=== PATIENT | male | born 1955 | race Caucasian/White ===

== ENCOUNTER → 2016-07-20 | Outpatient (CLI) | payer OTHER ==
[~2016-07-20] MED LIST: ACET-1256 PO; BSP15 PO; BUSP-8 PO; DSY50 PO; HYDR-5688 PO; LPR25 PO; METH500T37 PO; SERT100T PO; SERT50TA PO; TAMS0.4C38 PO; TRAZ1TAB52 PO; ZLF50 PO
--- NOTE | 2016-07-20 14:23 | DIAGNOSTIC IMAGING REPORT ---
CHEST 2 VIEWS ROUTINE CLINICAL HISTORY: DYSPNEA ON EXERTION COMPARISON STUDY: 11/02/2015 FINDINGS: The cardiac and mediastinal contours remain stable. There is a mild pectus deformity. There is no focal pulmonary consolidation. There is no failure. There are no pleural effusions.[ IMPRESSION: Pectus excavatum deformity. No active disease in the chest. Electronically signed by: Agustín Redd M.D. 07/20/2016 2:22 PM Dictated Date/Time: 07/20/2016 2:21 PM
== END | disposition home or self-care (01) ==
LOC: C.RADPV 14:09
PROVIDERS: ATTEND Nurse Practitioner
DX: R06.09 Other forms of dyspnea (principal)

== ENCOUNTER → 2016-07-26 | Outpatient (CLI) | payer OTHER ==
[2016-07-26 12:47] LABS: ALT/SGPT 44 U/L (12-78); AST/SGOT 14 U/L (15-37); BLOOD UREA NITROGEN 14 mg/dl (7-18); BUN/CREATININE RATIO 9.5 (10-20); CARBON DIOXIDE 28 mmol/L (21-32); CHLORIDE 107 mmol/L (98-107); GLUCOSE 91 mg/dl (70-99); SODIUM 142 mmol/L (136-145)
[2016-07-26 12:50] LABS: ALKALINE PHOSPHATASE 74 U/L (45-117); CHOLESTEROL 198 mg/dl (0-200); CHOLESTEROL/HDL RATIO 3.4; HDL CHOLESTEROL 59 mg/dl; LDL CHOLESTEROL CALCULATED 117 mg/dl; TRIGLYCERIDES 110 mg/dl (0-150); VERY LOW DENSITY LIPOPROT CALC 22 mg/dl
[2016-07-26 14:20] LABS: LYME DISEASE AB IGG NEG (NEG); LYME DISEASE AB IGM NEG (NEG)
== END | disposition home or self-care (01) ==
LOC: C.LABPVFM 08:22
PROVIDERS: ATTEND Nurse Practitioner
DX: R53.83 Other fatigue (principal); R20.9 Unspecified disturbances of skin sensation; Z13.220 Encounter for screening for lipoid disorders

== ENCOUNTER 2016-12-14 10:01 | Inpatient (IN) | payer OTHER ==
[~2016-12-14] VITALS: Ht 200.7 cm; Wt 94.7 kg
[2016-12-14 10:42] LABS: HEMATOCRIT 44.7 % (42-52); MEAN CELL VOLUME 84.8 fL (80-100); MEAN CORPUSCULAR HEMOGLOBIN 31.7 pg (25-34); MEAN CORPUSCULAR HGB CONC 37.4 g/dl (32-36); MEAN PLATELET VOLUME 9.4 fL (7.4-10.4); PLATELET COUNT 310 K/uL (130-400); RED BLOOD COUNT 5.27 M/uL (4.7-6.1); WHITE BLOOD COUNT 7.59 K/uL (4.8-10.8)
[2016-12-14] MEDS ORDERED: LORAZEPAM 2 MG/ML 1 ML VIAL IV STA (10:57)
[2016-12-14 11:00] LABS: PROTHROMBIN TIME (PATIENT) 10.8 SECONDS (9.0-12.0)
[2016-12-14 11:13] LABS: BUN/CREATININE RATIO 7.2 (10-20); CALCIUM 9.6 mg/dl (8.5-10.1); CREATININE 1.6 mg/dl (0.60-1.40); POTASSIUM 3.6 mmol/L (3.5-5.1)
[2016-12-14 11:18] LABS: ALB/GLOB RATIO 1.1 (0.9-2); CKMB/CK RATIO 0.9 (0-3.0)
[2016-12-14] MEDS ORDERED: ASPIRIN 324 MG CHEW PO STA (11:20)
[2016-12-14] MEDS ORDERED: NITROGLYCERIN OINT 2% 1GM PACKET EXT ONE (11:30)
[2016-12-14] MEDS ORDERED: OPTIRAY 320 IV PRN (11:30)
--- NOTE | 2016-12-14 11:32 | DIAGNOSTIC IMAGING REPORT ---
CHEST ONE VIEW PORTABLE CLINICAL HISTORY: Atypical chest pain, shortness of breath, arm tingling. COMPARISON STUDY: 11/09/2016 FINDINGS: The cardiac and mediastinal contours remain stable. There is no focal pulmonary consolidation. There is mild interstitial thickening, similar to the prior study given the differences in technique. There are no pleural effusions. There is no failure. There is a suspected pectus deformity.[ IMPRESSION: AP portable study. No active disease in the chest. Electronically signed by: Agustín Redd M.D. 12/14/2016 11:31 AM Dictated Date/Time: 12/14/2016 11:30 AM
[2016-12-14] MEDS ORDERED: SODIUM CHLORIDE 0.9% 1000ML 1,000 ML IV STA (12:28)
--- NOTE | 2016-12-14 12:38 | DIAGNOSTIC IMAGING REPORT ---
CT ANGIOGRAM OF THE CHEST CLINICAL HISTORY: Atypical chest pain. COMPARISON STUDY: Chest CT dated 07/03/2013. Chest x-ray dated 12/14/2016. TECHNIQUE: Following the IV administration of 93 cc of Optiray 320, CT angiogram of the chest was performed from the upper abdomen to the thoracic inlet utilizing the pulmonary embolus protocol. Images are reviewed in the axial, sagittal, and coronal planes. 3-D MIPS images are created and assessed. There is an IV malfunction on the first injection attempt. IV contrast was the administered without complication. CT DOSE: 1122.26 mGycm FINDINGS: Thyroid: Imaged portions of the thyroid gland are normal in size and attenuation. Thoracic aorta: The thoracic aorta is normal in caliber and demonstrates standard 3-vessel arch anatomy. No dissection is seen. Pulmonary vasculature: The pulmonary trunk is normal in caliber. There are no filling defects identified in main, lobar, or segmental pulmonary branches to suggest pulmonary embolus. Heart: The heart is normal in size and configuration, and without pericardial effusion. Lungs and pleural spaces: There is biapical scarring. No airspace consolidation or pleural effusion is seen. The trachea and central airways are clear. Mediastinum: There is no mediastinal lymphadenopathy. Radha: Clear. Axillae: There is no axillary lymphadenopathy. Upper abdomen: Partially visualized upper abdominal viscera is within normal limits. Skeletal structures: No lytic or blastic bony lesions are seen. A pectus deformity is noted. IMPRESSION: 1. There is no evidence of pulmonary embolus in the main, lobar, or segmental pulmonary arteries. 2. The lungs are clear. Electronically signed by: Keven Hilton M.D. 12/14/2016 12:36 PM Dictated Date/Time: 12/14/2016 12:21 PM
[2016-12-14] MEDS ORDERED: ONDANSETRON INJ 2 MG/ML 2 ML VIAL IV STA (12:54)
[2016-12-14] MEDS ORDERED: MoRPHine SULFATE 4 MG/ML 1 ML CARP\\VIAL IV STA (12:54)
[2016-12-14] MEDS ORDERED: ONDANSETRON INJ 2 MG/ML 2 ML VIAL IV PRN (13:30)
[2016-12-14] MEDS ORDERED: ACETAMINOPHEN 325 MG TAB PO PRN (13:30)
[2016-12-14] MEDS ORDERED: NURSING VERBAL MED ORDER ONE (13:30)
[2016-12-14] MEDS ORDERED: SERT50TA PO (13:30)
[2016-12-14] MEDS ORDERED: HEPARIN SOD 5000 UNIT/0.5 ML CARP IV ONE (13:30)
[2016-12-14] MEDS ORDERED: TAMS0.4C38 PO (13:30)
[2016-12-14] MEDS ORDERED: HEPARIN 25,000 UNIT/500ML D5W 500 ML IV PRN (13:30)
[2016-12-14] MEDS ORDERED: POTASSIUM CHLORIDE 10 MEQ TABCR PO STA (13:57)
[2016-12-14] MEDS ORDERED: NITROGLYCERIN 0.4 MG SL PER TAB CHARGE SL PRN (14:15)
[2016-12-14 14:42] LABS: ARTERIAL BLD GAS O2 SATURATION 94.9 % (90-95); ARTERIAL BLOOD GAS BASE EXCESS -3.4 mEq/L (-9-1.8); ARTERIAL BLOOD GAS HCO3 18 mmol/L (19-24); ARTERIAL BLOOD GAS PO2 69 mm/Hg (80-95); ARTERIAL BLOOD GAS pH 7.47 (7.35-7.45)
[2016-12-14 14:43] LABS: ALLEN TEST POS (POS); O2 ADMINISTRATION ROOM AIR
--- NOTE | 2016-12-14 15:04 | CARDIOLOGY CONSULTATION ---
DATE OF CONSULTATION: 12/14/2016 REFERRING: Dr. Euceda with the Emergency Room and Dr. Sargent. PRIMARY CARE PHYSICIAN: Through [facility]. INDICATIONS: Chest pain, dyspnea. HISTORY OF PRESENT ILLNESS: The patient is a 61-year-old male who presented to the Emergency Room with complaints of worsening dyspnea. The symptoms present now for nearly 2 years in duration by his description. Symptoms this morning were associated with chest pressure, pain as well as dyspnea and tachypnea. He has been evaluated per his own description with multiple pulmonary function tests recently as well as an echocardiogram in October 2016 for complaints without remarkable finding. His underlying medical history is notable for chronic anxiety, pectus excavatum, but no prior history of cardiac disease. Symptoms this morning caused him significant concern as he began developing a tingling sensation that began at his waist and ran to his neck and down both arms. Symptoms were then associated with acute diaphoresis and dyspnea. Episodes lasted greater than an hour in duration before ER presentation. Symptoms have eased but not completely relieved in the Emergency Room. Initial laboratory studies demonstrated an elevated troponin of 0.36. Due to symptoms of dyspnea he underwent CT scanning of the chest, which demonstrated no evidence of pulmonary emboli. Initial and repeat EKGs revealed no acute ST segment changes. He is currently intermittently dyspneic and tachypneic, but notes pressure sensation in chest is less than 1, tingling sensation has completely resolved. REVIEW OF SYSTEMS: On full review of systems he notes a history of possible heart murmur as a child. Notes no history of rheumatic fever, scarlet fever, TIA or stroke. Notes single kidney history. Notes no melena, hematochezia, dysuria or hematuria. Notes no acute weight loss or gain. Appetite has been fair. He notes marked difficulty with sleeping. He was seen in the clinic yesterday and begun on Zoloft with first dose yesterday due to current complaints. Other medications are Flomax only for urinary complaints. Notes no dysuria or hematuria. Notes no rash or arthritic complaint. ALLERGIES: AMOXICILLIN. MEDICATIONS: Sertraline 50 mg daily with first dose yesterday, tamsulosin 0.4 mg every day. PAST SURGICAL HISTORY: Notable for surgical repair of malrotation with umbilical hernia repair, past history repair, cat bite surgical debridement. FAMILY HISTORY: Not specifically notable for heart disease. SOCIAL HISTORY: The patient resides in [place]. 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 He is a prior smoker but discontinued in the remote past. Uses no current alcoholic beverage other than a rare beer. He has currently been very sedentary about home, feels dyspnea limits his activities. PHYSICAL EXAMINATION: GENERAL: The patient is an acutely anxious 61-year-old male, intermittently tachypneic on examination. VITAL SIGNS: Heart rate is 82, blood pressure is 140/90 equal in both arms. HEENT: Normocephalic, atraumatic. NECK: There are no carotid bruits. There is no jugular venous distention at 30 degrees. LUNGS: Clear to auscultation. Chest reveals marked pectus excavatum formation. CARDIOVASCULAR: Regular. There is no S3 gallop. ABDOMEN: Soft. There is a well-healed surgical incision at midline with very small umbilical hernia/ventral hernia. EXTREMITIES: Femoral and distal pulses are 2+/4. There is no palpable hepatosplenomegaly. There is no hepatojugular reflux. There are intact distal pulses. There is no brachial femoral delay. NEUROLOGIC: The patient is anxious but not answering questions appropriately. LABORATORY DATA: White blood cell count 7.5, hemoglobin 16.7. Sodium is 139, potassium is 3.6, chloride is 108, bicarbonate is 20, BUN is 12, creatinine is 1.6, glucose is 148. CK and MB fractions are normal, although initial point of care troponin was 0.36, albumin levels 3.9. EKG on initial presentation revealed sinus rhythm with borderline criteria for left atrial enlargement, repeat EKG revealed slightly moderate to marked acute T-wave peaking in the lateral leads, but performed with patient hyperventilating. Chest x-ray reveals no acute processes per description. CT scan of the chest revealed no pulmonary embolus or thrombus. IMPRESSION: A 61-year-old male with approximately 2-year history of dyspnea of ill-defined etiology with past normal pulmonary function testing per report. Echocardiogram demonstrating preserved LV function in October, presented to the Emergency Room with symptoms of tingling from abdomen to chest, chest pressure and dyspnea. Initial troponins elevated at 0.36, though EKGs revealed no acute changes. He has been initiated on IV heparin and aspirin in the Emergency Room as well as topical nitrates. RECOMMENDATIONS: We will continue current therapies as already ordered. We will repeat echocardiogram recently performed to assess for wall motion abnormalities. Suspect at least a component of his complaints are anxiety and tachypnea-induced though underlying ischemic heart disease not completely excluded. Will add in low-dose beta-fernando. Would recommend discontinuing the Zoloft begun day prior. Will follow patient in the hospital.
[2016-12-14 15:10] VITALS: BP 152/92; PULSE 66; TEMP 36.4; O2SAT 99; Ht 200.7 cm; Wt 94.7 kg
[2016-12-14 16:00] VITALS: O2SAT 99
[2016-12-14] MEDS ORDERED: METOPROLOL TARTRATE 25 MG TAB PO ONE (16:00)
[2016-12-14 16:22] VITALS: BP 146/83
[2016-12-14] MEDS: ATORVASTATIN 40 MG TAB PO SCH (16:48)
--- NOTE | 2016-12-14 17:10 | History and Physical ---
History & Physical Date of Service Dec 14, 2016. History & Physical This is a 61 year old male with a PMH of HLD, depression/anxiety, hx of tobacco use, quit 10 years prior - presents with chronic dyspnea which occurs intermittently and with no precipitating factors. He presented to the ER due to getting dyspneic, tachypneic and developed a non-radiating chest pain. He states he had a stress test in 2011, which was negative, and he has had multiple PFTs which were also negative. Recently started on Zoloft (first dose was on 12/13; one day prior to arrival). He received nitro and he feels better. VITALS: Last Vital Signs Documentation Date Time Temp Pulse Resp B/P (MAP) Pulse Ox O2 Delivery O2 Flow Rate FiO2 12/14/16 16:22 146/83 (104) 12/14/16 15:10 36.4 66 20 99 Room Air GEN: no acute distress CVS: +S1, S2, RRR LUNGS: CTA b/l, no wheezing, +pectus excavatum ABD: distended, soft, NT EXT: no edema Chest Pain this is not likely ACS related IV heparin initially started due to elevated POC trop; now down to 0.016 spoke with cardiology, will d/c IV heparin continue statin b-fernando added as per cardiology possibly related to underlying lung disease vs. anxiety CT chest = PE ruled out; lungs are clear trend enzymes echo pending Dyspnea/Tachypnea this is more likely related to anxiety patient does have a history of tobacco use - smoked 1-1.5PPD for 20 years prior to quitting about 10 years ago (2006) has had PFTs, which as per patient have been negative stopped Zoloft in case there was a side effect to the medication may need a different SSRI vs. buspar or even benzodiazepine for anxiety HLD continue statin DVT ppx initially IV heparin, now subq heparin FULL CODE
--- NOTE | 2016-12-14 17:27 | EMERGENCY ROOM VISIT NOTE ---
History Report prepared by Luis: Paulie Rosenthal Under the Supervision of: Dr. Liam Euceda M.D. First contact with patient: 10:48 Chief Complaint: CHEST PAIN Stated Complaint: CHEST PAIN,TINGLE IN ARM,SOB Nursing Triage Summary: pt reports tingling sensation from top of chest down to left side at armpits pt is obviously hyperventilating, per himself and , he has been having multiple tests to figure out why, today however it is worse pt recently started zoloft History of Present Illness The patient is a 61 year old male who presents to the Emergency Room with complaints of intermittent, pressure-like chest pain that began 2 and a half hours ago. He rates his pain a 6/10 in severity. At this time, the patient was sitting down watching television when the pain began suddenly. He notes that he felt a tingling sensation go from his sternum to his groin. This has been happening intermittently since then. He feels that his chest is tight and is making it hard for him to breath. He is also experiencing diaphoresis and heat flashes. His pain worsens with exertion. He denies any leg swelling or pain. He has a past medical history of respiratory problems for the past 2 years, but cannot find a source. He also has a history of hypertension, but is not currently treating it. He is a former smoker, having quit 9 years ago. Heart disease does not run in his family. He also began Zoloft yesterday. Source of History: patient Onset: 2 and a half hours ago Position: chest Symptom Intensity: 6/10 Quality: pressure, tingling Timing: intermittent Modifying Factors (Worsening): exertion Associated Symptoms: + diaphoresis, + SOB Note: He denies any leg swelling or pain. Review of Systems See HPI for pertinent positives & negatives. A total of 10 systems reviewed and were otherwise negative. Past Medical & Surgical Medical Problems: (1) Anxiety (2) BPH (benign prostatic hyperplasia) (3) Intestinal malrotation (4) Solitary kidney Surgical Problems: (1) H/O sinus surgery (2) History of carpal tunnel surgery (3) History of intestinal surgery Family History FHx: lung disease Social History Smoking Status: Former Smoker Marital Status: Housing Status: lives with family Occupation Status: employed Current/Historical Medications Scheduled Sertraline (Zoloft), 50 MG PO DAILY Tamsulosin Hcl (Flomax), 0.4 MG PO DAILY Allergies Coded Allergies: Amoxicillin (Verified Allergy, Mild, RASH, 12/14/16) Physical Exam Vital Signs Date Time Temp Pulse Resp B/P (MAP) Pulse Ox O2 Delivery O2 Flow Rate FiO2 12/14/16 13:17 73 12/14/16 11:42 68 19 149/84 97 Room Air 12/14/16 10:39 75 22 143/81 98 Room Air 12/14/16 10:20 69 12/14/16 10:20 71 40 156/85 99 Room Air 12/14/16 10:16 99 Room Air 12/14/16 10:09 36.4 75 40 150/82 97 Room Air Physical Exam Constitutional: Vital signs reviewed. Eyes: Pupils are equal round reactive to light. Conjunctiva are noninjected. ENT: Pharynx is clear without erythema or exudate. Mucous membranes are moist. Neck supple without meningeal signs. Respiratory: Hyperventilating. Clear to auscultation bilaterally. Breath sounds are equal bilaterally. Cardiovascular: Regular rate and rhythm. No rubs or gallops. GI: Soft, nondistended and nontender. Bowel sounds are present. Musculoskeletal: No peripheral edema. No lower extremity tenderness. Integumentary: No cyanosis. Neurological: The patient is awake and alert. No focal deficits. Psychiatric: Anxious. Medical Decision & Procedures ER Provider Diagnostic Interpretation: Radiology results as stated below per my review and the radiologist's interpretation: CHEST ONE VIEW PORTABLE CLINICAL HISTORY: Atypical chest pain, shortness of breath, arm tingling. COMPARISON STUDY: 11/09/2016 FINDINGS: The cardiac and mediastinal contours remain stable. There is no focal pulmonary consolidation. There is mild interstitial thickening, similar to the prior study given the differences in technique. There are no pleural effusions. There is no failure. There is a suspected pectus deformity.[ IMPRESSION: AP portable study. No active disease in the chest. Electronically signed by: Agustín Redd M.D. 12/14/2016 11:31 AM Dictated Date/Time: 12/14/2016 11:[address] ANGIOGRAM OF THE CHEST CLINICAL HISTORY: Atypical chest pain. COMPARISON STUDY: Chest CT dated 07/03/2013. Chest x-ray dated 12/14/2016. TECHNIQUE: Following the IV administration of 93 cc of Optiray 320, CT angiogram of the chest was performed from the upper abdomen to the thoracic inlet utilizing the pulmonary embolus protocol. Images are reviewed in the axial, sagittal, and coronal planes. 3-D MIPS images are created and assessed. There is an IV malfunction on the first injection attempt. IV contrast was the administered without complication. CT DOSE: 1122.26 mGycm FINDINGS: Thyroid: Imaged portions of the thyroid gland are normal in size and attenuation. Thoracic aorta: The thoracic aorta is normal in caliber and demonstrates standard 3-vessel arch anatomy. No dissection is seen. Pulmonary vasculature: The pulmonary trunk is normal in caliber. There are no filling defects identified in main, lobar, or segmental pulmonary branches to suggest pulmonary embolus. Heart: The heart is normal in size and configuration, and without pericardial effusion. Lungs and pleural spaces: There is biapical scarring. No airspace consolidation or pleural effusion is seen. The trachea and central airways are clear. Mediastinum: There is no mediastinal lymphadenopathy. Radha: Clear. Axillae: There is no axillary lymphadenopathy. Upper abdomen: Partially visualized upper abdominal viscera is within normal limits. Skeletal structures: No lytic or blastic bony lesions are seen. A pectus deformity is noted. IMPRESSION: 1. There is no evidence of pulmonary embolus in the main, lobar, or segmental pulmonary arteries. 2. The lungs are clear. Electronically signed by: Keven Hilton M.D. 12/14/2016 12:36 PM Dictated Date/Time: 12/14/2016 12:21 PM Laboratory Results 12/14/16 10:30 12/14/16 10:30 Test 12/14/16 10:30 12/14/16 10:44 Red Blood Count 5.27 M/uL (4.7-6.1) Mean Corpuscular Volume 84.8 fL (80-100) Mean Corpuscular Hemoglobin 31.7 pg (25-34) Mean Corpuscular Hemoglobin Concent 37.4 g/dl (32-36) RDW Standard Deviation 41.2 fL (36.4-46.3) RDW Coefficient of Variation 13.3 % (11.5-14.5) Mean Platelet Volume 9.4 fL (7.4-10.4) Prothrombin Time 10.8 SECONDS (9.0-12.0) Prothromb Time International Ratio 1.0 (0.9-1.1) Activated Partial Thromboplast Time 27.1 SECONDS (21.0-31.0) Partial Thromboplastin Ratio 1.0 D-Dimer 370 ug/L FEU (0-500) Anion Gap 11.0 mmol/L (3-11) Est Creatinine Clear Calc Drug Dose 64.3 ml/min Estimated GFR () 53.1 Estimated GFR (Non- 45.8 BUN/Creatinine Ratio 7.2 (10-20) Calcium Level 9.6 mg/dl (8.5-10.1) Total Bilirubin 0.7 mg/dl (0.2-1) Aspartate Amino Transf (AST/SGOT) 24 U/L (15-37) Alanine Aminotransferase (ALT/SGPT) 38 U/L (12-78) Alkaline Phosphatase 77 U/L (45-117) Total Creatine Kinase 278 U/L (39-308) Total Protein 7.6 gm/dl (6.4-8.2) Albumin 3.9 gm/dl (3.4-5.0) Globulin 3.7 gm/dl (2.5-4.0) Albumin/Globulin Ratio 1.1 (0.9-2) Bedside Troponin I 0.360 ng/ml (0-0.045) Laboratory results as reviewed by me. Medications Administered Medications (Trade) Dose Ordered Sig/Gadiel Route Start Time Stop Time Status Last Admin Dose Admin Lorazepam (Ativan Inj) 0.5 mg NOW STAT IV 12/14/16 10:57 12/14/16 10:58 DC 12/14/16 11:11 0.5 MG Nitroglycerin (Nitroglycerin 2% Oint) 0.5 inch NOW ONCE EXT 12/14/16 11:30 12/14/16 11:31 DC 12/14/16 11:36 0.5 INCH Aspirin (Aspirin Chew) 324 mg NOW STAT PO 12/14/16 11:20 12/14/16 11:22 DC 12/14/16 11:36 324 MG Sodium Chloride 1,000 ml @ 125 mls/hr Q8H STAT IV 12/14/16 12:28 12/14/16 15:36 DC 12/14/16 12:46 125 MLS/HR Heparin Sodium/ Dextrose 500 ml @ 24 mls/hr [id number] PRN IV 12/14/16 13:30 12/14/16 16:59 DC 12/14/16 14:05 24 MLS/HR Heparin Sodium (Porcine) (Heparin Sq 5000 Unit/0.5ml) 5,000 unit NOW ONCE IV 12/14/16 13:30 12/14/16 13:31 DC 12/14/16 14:03 5,000 UNIT ECG Indication: chest pain Rate (beats per minute): 75 Rhythm: normal sinus Findings: nonspecific-ST abn (V3-V6), no ectopy Comparison ECG Date: 20 Jun 2008 Change: no significant change Change: Repeat ECG today showed: Sinus bradycardia with a rate of 58. No ST elevations. No ectopy. The T-waves are more prominent in this ECG compared to previous. ED Course 1048: The patient was evaluated in room C6. A complete history and physical exam was performed. 1057: Ordered Ativan Inj 0.5 mg IV 1120: The patient is feeling better at this time. He is still dyspneic. We discussed his results and his need for a CT scan. Ordered Aspirin 324 mg PO. 1130: Ordered Nitroglycerin 0.5 inch EXT 1228: Ordered Sodium Chloride 1000 ml @ 125 mls/hr IV 1253: The patient informed me that his chest pain is at a 3/10. 1254: I spoke with Rossi Brown. She will be evaluating the patient for further management and care. Ordered Zofran Inj 4 mg IV, Morphine Sulfate 4 mg IV. 1306: The patient informed me that his chest pain is now a 1/10. We discussed the risks and benefits of Heparin. Rossi Caruso is currently in the room. 1307: I spoke with Dr. Bhatia - Madelaine, at this time. We discussed the patient's case. He recommends starting the Heparin. He will be coming to evaluate the patient. 1413: The patient's chest pain is gone. The Heparin is infusing. Medical Decision This is a 61-year-old male who presents with chest pain. Differential diagnosis includes unstable angina, HI, pleurisy, pulmonary embolism, anxiety, panic attack. I did perform a limited focused review of portions of the patient 's old chart on the electronic medical record. The patient had an echocardiogram on November 09, 2016. It showed grade 1 diastolic dysfunction. Blood Pressure Screening: Patient was found to have an elevated blood pressure and was referred to their primary doctor for recheck and further treatment. Medication Reconciliation: I attest that I have personally reviewed the patient' s current medication list. I did evaluate the patient as noted above. IV access was established. The patient was placed on a continuous diagnostic cardiac sonographer. The patient is hyperventilating. He does present with chest pain which came on at rest and was associated with shortness of breath and diaphoresis. He is also very anxious. I did treat him with Ativan IV. I did order and personally review the patient's 12-lead EKG and chest x-ray as described above. His 12-lead EKG does not demonstrate any acute ischemia. I did order and review the patient's blood work as noted in the electronic medical record. His troponin is elevated. I did reevaluate the patient. He is stating that his chest pain has come back. He was given nitro paste and aspirin. He is still hyperventilating. I did recommend evaluation for PE. I did order a CT of the chest. I did review the images myself as well as the radiology report as described above. He was hydrated with normal saline IV after his CT scan. There was no pulmonary embolism. I did repeat his 12-lead EKG which showed hyperacute T waves in the precordial leads. He rated his pain a 3 out of 10 in severity. I did order IV morphine and Zofran but he stated that the chest pain improved even before he was given the morphine down to a 1. I did talk to cardiology. I did start patient on IV heparin and a heparin drip. On reassessment his chest pain is completely resolved. He was admitted to the hospital. Consults Time Called: 1250 Consulting Physician: Rossi Mcnulty Returned Call: [phone] She will be evaluating the patient for further management and care. Additional Consults: Time Called: 1305 Consulted Physician: Dr. Bhatia - Cardiology Returned Call: [phone] Additional Comments: We discussed the patient's case. They recommend to start the Heparin. They will be coming to evaluate the patient as well. Impression Primary Impression: NSTEMI (non-ST elevated myocardial infarction) Critical Care I have personally spent 35 minutes of critical care time in the direct management of this patient. This includes bedside care, interpretation of diagnostic studies, and testing, discussion with consultants, patient, and family members, and other required patient management activities. This 35 minutes is in excess of all separately billable procedures. Scribe Attestation The scribe's documentation has been prepared under my direct and personally reviewed by me in its entirety. I confirm that the note above accurately reflects all work, treatment, procedures, and medical decision making performed by me. Departure Information Dispostion Being Evaluated By Hospitalist Referrals No Doctor, Assigned (PCP) Patient Instructions My [facility]
--- NOTE | 2016-12-14 17:39 | History and Physical ---
History & Physical Date & Time of Service: Dec 14, 2016 ~ 13:00 Chief Complaint: Chest Pain Primary Care Physician: Abdirahman,Norberto [facility] History of Present Illness 61 year old male who presents to the ER with chest pain. Patient reports a long standing history of shortness of breath for the past two years. 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 Patient reports that he develops shortness of breath with minimal exertion and also sometimes at rest. Today while sitting on the couch watching TV the front of his body from his head to his waist started to tingled. He then felt very hot and broke out in severe diaphoresis. He also reports associated chest pain that was located midsternal. He describes the pain as a stabbing and rates it #9/10 at its worst. He then presented to the ER. He was topical nitro and had almost complete resolution of the pain. Patient denies associated nausea, lightheadedness, or dizziness. No recent illnesses, fever, or chills. He denies abdominal pain, vomiting, or diarrhea. No urinary symptoms. In the ER, EKG does not show any acute ST changes but troponin is mildly elevated at 0.360. CTA chest is negative for PE. He was given full dose ASA, topical nitro, Ativan, and IVF. Past Medical/Surgical History Medical Problems: (1) Anxiety Status: Chronic (2) BPH (benign prostatic hyperplasia) Status: Chronic (3) Intestinal malrotation Status: Chronic (4) Solitary kidney Status: Chronic Surgical Problems: (1) H/O sinus surgery Status: Chronic (2) History of carpal tunnel surgery Status: Chronic (3) History of intestinal surgery Status: Chronic Family History negative for premature CAD, DM, or CVA Social History Smoking Status: Former Smoker Alcohol Use: occasionally Multi-Drug Resistant Organisms History of MDRO: No Allergies Coded Allergies: Amoxicillin (Verified Allergy, Mild, RASH, 12/14/16) Home Medications Scheduled Sertraline (Zoloft), 50 MG PO DAILY Tamsulosin Hcl (Flomax), 0.4 MG PO DAILY Review of Systems ROS per HPI, all other systems reviewed and negative Physical Exam Vital Signs Date Time Temp Pulse Resp B/P (MAP) Pulse Ox O2 Delivery O2 Flow Rate FiO2 12/14/16 16:22 146/83 (104) 12/14/16 15:10 36.4 66 20 152/92 99 Room Air 12/14/16 15:00 65 20 139/87 98 12/14/16 14:45 65 15 139/87 98 Room Air 12/14/16 13:42 65 20 154/91 98 Room Air 12/14/16 13:17 73 12/14/16 11:42 68 19 149/84 97 Room Air 12/14/16 10:39 75 22 143/81 98 Room Air 12/14/16 10:20 69 12/14/16 10:20 71 40 156/85 99 Room Air 12/14/16 10:16 99 Room Air 12/14/16 10:09 36.4 75 40 150/82 97 Room Air General Appearance: + mild distress (tachypnea) Head: normocephalic Eyes: normal inspection ENT: hearing grossly normal Neck: supple, no JVD Respiratory/Chest: lungs clear, normal breath sounds, + respiratory distress ( mild tachypnea - patient reports chronic ), + pertinent finding (pectus excavatum noted ) Cardiovascular: regular rate, rhythm, no edema, normal peripheral pulses Abdomen/GI: normal bowel sounds, non tender, soft Extremities/Musculoskelatal: normal inspection, no calf tenderness Neurologic/Psych: no motor/sensory deficits, alert, normal mood/affect, oriented x 3 Skin: normal color, warm/dry Diagnostics Laboratory Results Results Past 24 Hours Test 12/14/16 10:30 12/14/16 10:44 12/14/16 14:30 12/14/16 16:00 Range/Units White Blood Count 7.59 4.8-10.8 K/uL Red Blood Count 5.27 4.7-6.1 M/uL Hemoglobin 16.7 14.0-18.0 g/dL Hematocrit 44.7 42-52 % Mean Corpuscular Volume 84.8 80-100 fL Mean Corpuscular Hemoglobin 31.7 25-34 pg Mean Corpuscular Hemoglobin Concent 37.4 32-36 g/dl RDW Standard Deviation 41.2 36.4-46.3 fL RDW Coefficient of Variation 13.3 11.5-14.5 % Platelet Count 310 130-400 K/uL Mean Platelet Volume 9.4 7.4-10.4 fL Prothrombin Time 10.8 9.0-12.0 SECONDS Prothromb Time International Ratio 1.0 0.9-1.1 Activated Partial Thromboplast Time 27.1 21.0-31.0 SECONDS Partial Thromboplastin Ratio 1.0 D-Dimer 370 0-500 ug/L FEU Sodium Level 139 136-145 mmol/L Potassium Level 3.6 3.5-5.1 mmol/L Chloride Level 108 98-107 mmol/L Carbon Dioxide Level 20 21-32 mmol/L Anion Gap 11.0 3-11 mmol/L Blood Urea Nitrogen 12 7-18 mg/dl Creatinine 1.60 0.60-1.40 mg/dl Est Creatinine Clear Calc Drug Dose 64.3 ml/min Estimated GFR () 53.1 Estimated GFR (Non- 45.8 BUN/Creatinine Ratio 7.2 10-20 Random Glucose 148 70-99 mg/dl Calcium Level 9.6 8.5-10.1 mg/dl Total Bilirubin 0.7 0.2-1 mg/dl Aspartate Amino Transf (AST/SGOT) 24 15-37 U/L Alanine Aminotransferase (ALT/SGPT) 38 12-78 U/L Alkaline Phosphatase 77 45-117 U/L Total Creatine Kinase 278 39-308 U/L Creatine Kinase MB 2.5 0.5-3.6 ng/ml Creatine Kinase MB Ratio 0.9 0-3.0 Total Protein 7.6 6.4-8.2 gm/dl Albumin 3.9 3.4-5.0 gm/dl Globulin 3.7 2.5-4.0 gm/dl Albumin/Globulin Ratio 1.1 0.9-2 Bedside Troponin I 0.360 0-0.045 ng/ml Arterial Blood pH 7.47 7.35-7.45 Arterial Blood Partial Pressure CO2 26 35-46 mmHg Arterial Blood Partial Pressure O2 69 80-95 mm/Hg Arterial Blood HCO3 18 19-24 mmol/L Arterial Blood Oxygen Saturation 94.9 90-95 % Arterial Blood Base Excess -3.4 -9-1.8 mEq/L Arterial Blood Gas Delivery ROOM AIR Britton Test POS POS Test 12/14/16 16:02 Range/Units Creatine Kinase MB 1.8 0.5-3.6 ng/ml Troponin I 0.016 0-0.045 ng/ml Diagnostic Radiology CXR IMPRESSION: AP portable study. No active disease in the chest. CTA CHEST IMPRESSION: 1. There is no evidence of pulmonary embolus in the main, lobar, or segmental pulmonary arteries. 2. The lungs are clear. Impression Assessment and Plan CHEST PAIN, SHORTNESS OF BREATH - admit to tele - patient presenting with sudden onset of upper body tingling, diaphoresis, chest pain, and acute worsening of his chronic shortness of breath - in the ER, initial troponin 0.360, EKG without acute ST changes - will continue to cycle cardiac enzymes, resting echo - possible NSTEMI - case discussed with Dr. Bhatia, will start IV heparin and statin, continue topical nitrates; further cardiac meds as per cardio - no risk factors for ACS identified - also consider anxiety / reaction to recently started Zoloft; will hold Zoloft - regarding the shortness of breath, this has been a long standing problem for the patient for the past 2 years and per his reports has had an extensive work up; will consider pulmonary work up BPH - continue Flomax ANXIETY - as above, holding Zoloft, consider alternative agent DVT PROPHYLAXIS - on IV heparin DISPO - In my clinical judgment this beneficiary meets acute admission criteria, established by [facility], that includes being hospitalized through two midnights. Advanced Directives Existing Living Will: No Existing Power of Alliances Consultant: No VTE Prophylaxis VTE Risk Assessment Done? Y/N: Yes Risk Level: Moderate Given or contraindicated: Other Anticoagulation
--- NOTE | 2016-12-14 17:40 | ECHOCARDIOGRAM REPORT ---
*NOTICE TO RECEIVING [employer] This information is strictly Confidential and protected under [place] law. [place] law prohibits you from making any further disclosure of this information unless further disclosure is expressly permitted by the written consent of the person to whom it pertains or is authorized by law. A general authorization for the release of medical or other information is not sufficient for this purpose. Hospital accepts no responsibility if the information is made available to any other person, INCLUDING THE PATIENT. Interpretation Summary * Name: TIMO OLIVARES JR Study Date: 12/14/2016 03:18 PM BP: 152/92 mmHg * Patient Location: .2E\S\E208\S\1 HR: 66 * : 1955 (M/d/yyyy) Gender: Male Height: 79 in * Age: 61 yrs Ethnicity: CA Weight: 216 lb * Ordering Physician: Rossi Caruso * Referring Physician: Self, Referred * Performed By: Abbey Zapata RDCS * * Reason For Study: Chest pain * BSA: 2.4 m2 * Normal transthoracic echocardiogram. Procedure Details * A complete two-dimensional transthoracic echocardiogram was performed (2D, M-mode, Doppler and color flow Doppler). Left Ventricle * The left ventricle is normal in size. * There is normal left ventricular wall thickness. * Ejection Fraction = 60-65%. * Left ventricular systolic function is normal. * The left ventricular wall motion is normal. Right Ventricle * The right ventricle is normal in size and function. Atria * The left atrial size is normal. * Right atrial size is normal. * No ASD detected; PFO is not assessed. Mitral Valve * The mitral valve is normal. * There is no mitral valve stenosis. * There is trace mitral regurgitation. Tricuspid Valve * The tricuspid valve is normal. * There is no tricuspid stenosis. * There is trace tricuspid regurgitation. Aortic Valve * The aortic valve is trileaflet. * No hemodynamically significant valvular aortic stenosis. * No aortic regurgitation is present. Pulmonic Valve * The pulmonic valve is not well visualized. Great Vessels * The aortic root is normal size. Pericardium/Pleural * There is no pericardial effusion. Great Vessels * Normal inferior vena cava diameter and respiratory variation suggests normal central venous pressure. MMode 2D Measurements and Calculations IVSd 1.1 cm LVIDd 4.1 cm LVIDs 2.5 cm LVPWd 0.85 cm IVS/LVPW 1.3 FS 39.5 % EDV(Teich) 72.2 ml ESV(Teich) 21.2 ml EF(Teich) 70.6 % EDV(cubed) 66.5 ml ESV(cubed) 14.7 ml EF(cubed) 77.9 % LV mass(C)d 124.2 grams LV mass(C)dI 52.8 grams/m\S\2 SV(Teich) 50.9 ml SI(Teich) 21.6 ml/m\S\2 SV(cubed) 51.8 ml SI(cubed) 22.0 ml/m\S\2 Ao root diam 3.4 cm Ao root area 9.1 cm\S\2 ACS 2.0 cm LA dimension 2.8 cm asc Aorta Diam 3.0 cm LA/Ao 0.82 LVOT diam 2.0 cm LVOT area 3.0 cm\S\2 LVAd ap4 29.3 cm\S\2 LVLd ap4 7.2 cm EDV(MOD-sp4) 95.3 ml EDV(sp4-el) 101.1 ml LVAs ap4 16.0 cm\S\2 LVLs ap4 6.0 cm ESV(MOD-sp4) 34.9 ml ESV(sp4-el) 36.1 ml EF(MOD-sp4) 63.4 % EF(sp4-el) 64.3 % LVAd ap2 25.9 cm\S\2 LVLd ap2 7.8 cm EDV(MOD-sp2) 69.3 ml EDV(sp2-el) 72.5 ml LVAs ap2 13.7 cm\S\2 LVLs ap2 6.1 cm ESV(MOD-sp2) 25.9 ml ESV(sp2-el) 26.1 ml EF(MOD-sp2) 62.6 % EF(sp2-el) 64.0 % LVLd %diff 8.0 % EDV(MOD-bp) 84.9 ml LVLs %diff 0.67 % ESV(MOD-bp) 30.1 ml EF(MOD-bp) 64.6 % SV(MOD-sp4) 60.4 ml SI(MOD-sp4) 25.7 ml/m\S\2 SV(MOD-sp2) 43.4 ml SI(MOD-sp2) 18.5 ml/m\S\2 SV(MOD-bp) 54.9 ml SI(MOD-bp) 23.3 ml/m\S\2 SV(sp4-el) 65.0 ml SI(sp4-el) 27.6 ml/m\S\2 SV(sp2-el) 46.4 ml SI(sp2-el) 19.7 ml/m\S\2 Doppler Measurements and Calculations MV E max kb 52.9 cm/sec MV A max kb 82.9 cm/sec MV E/A 0.64 MV dec time 0.21 sec Ao V2 max 117.3 cm/sec Ao max PG 5.5 mmHg Ao max PG (full) 0.83 mmHg ISAC(V,A) 2.8 cm\S\2 ISAC(V,D) 2.8 cm\S\2 LV V1 max PG 4.7 mmHg LV V1 max 108.2 cm/sec PA V2 max 115.4 cm/sec PA max PG 5.3 mmHg PA acc slope 596.9 cm/sec\S\2 PA acc time 0.15 sec PI max kb 109.9 cm/sec PI max PG 4.8 mmHg PI dec slope 98.8 cm/sec\S\2 PI P1/2t 325.8 msec PA pr(Accel) 12.5 mmHg
[2016-12-14] MEDS: METOPROLOL TARTRATE 25 MG TAB PO SCH ×2 (18:00→23:20)
[2016-12-14 18:23] VITALS: BP 125/77; PULSE 61; O2SAT 97
[2016-12-14] MEDS: NITROGLYCERIN OINT 2% 1GM PACKET EXT SCH ×2 (18:25→23:20)
[2016-12-14 19:21] VITALS: BP 126/76; PULSE 55; TEMP 36.5; O2SAT 98
[2016-12-14] MEDS: BusPIRone 15 MG TAB PO SCH (21:23)
[2016-12-14] MEDS: HEPARIN SOD 5000 UNIT/0.5 ML CARP SQ SCH (21:23)
[2016-12-14 23:18] VITALS: BP 122/70; PULSE 57; TEMP 36.9; O2SAT 96
[2016-12-15 03:07] VITALS: BP 114/59; PULSE 66; TEMP 36.7; O2SAT 97
[2016-12-15] MEDS: METOPROLOL TARTRATE 25 MG TAB PO SCH (06:00)
[2016-12-15 06:03] VITALS: BP 129/68
[2016-12-15] MEDS: HEPARIN SOD 5000 UNIT/0.5 ML CARP SQ SCH ×2 (06:07→13:31)
[2016-12-15] MEDS: NITROGLYCERIN OINT 2% 1GM PACKET EXT SCH (06:07)
[2016-12-15 06:23] LABS: HEMATOCRIT 44.4 % (42-52); MEAN CELL VOLUME 85.5 fL (80-100); MEAN CORPUSCULAR HEMOGLOBIN 30.4 pg (25-34); MEAN CORPUSCULAR HGB CONC 35.6 g/dl (32-36); MEAN PLATELET VOLUME 9.4 fL (7.4-10.4); PLATELET COUNT 301 K/uL (130-400); RED BLOOD COUNT 5.19 M/uL (4.7-6.1); WHITE BLOOD COUNT 9.25 K/uL (4.8-10.8)
[2016-12-15 06:55] LABS: BUN/CREATININE RATIO 10.2 (10-20); CALCIUM 8.9 mg/dl (8.5-10.1); CREATININE 1.5 mg/dl (0.60-1.40)
[2016-12-15 07:00] LABS: CHOLESTEROL/HDL RATIO 4.5
[2016-12-15 07:45] VITALS: BP 126/65; PULSE 62; TEMP 36.6; O2SAT 96
[2016-12-15] MEDS: ATORVASTATIN 40 MG TAB PO SCH (07:45)
[2016-12-15] MEDS: BusPIRone 15 MG TAB PO SCH (07:45)
[2016-12-15] MEDS ORDERED: ASPIRIN 81 MG ECTAB PO SCH (09:00)
[2016-12-15] MEDS ORDERED: SERTRALINE HCL 50 MG TAB PO SCH ×2 (09:00→14:45)
[2016-12-15] MEDS ORDERED: TAMSULOSIN HCL 0.4 MG CAP PO SCH (09:00)
[2016-12-15] MEDS ORDERED: LORAZEPAM 0.5 MG TAB PO STA (09:27)
[2016-12-15] MEDS ORDERED: LORAZEPAM 0.5 MG TAB PO PRN (09:30)
--- NOTE | 2016-12-15 09:47 | Progress Note ---
Internal Med Progress Note Date of Service: Dec 15, 2016. Provider Documentation: SUBJECTIVE: continues to feel very anxious feels very SOB /palpitation with activity no hypoxia notes pt mentions of having panic attack /anxiety with crowed , around people -since his childhood having anxiety attack -leading him having acute episode of SOB , drenching sweats , palpitation , tingling sensations in extremities none of the symptoms has improves since admission OBJECTIVE: Vital Signs-as noted below Exam: General-anxious , Eyes-sclera non icteric Neck-no JVD noted Lungs-CTA Heart-regular s1/s2, no lower ext edema Abdomen-soft, non tender Extremities-no rash or deformity Neuro-AAO x3, no focal neurological deficit Lab data as noted below. ASSESSMENT & PLAN: ANXIETY DISORDER /PANIC ATTACK /AGAROPHOBIA : -possible causing chest pain /diaphoresis /tingling numbness of ext -cardiac work up negative for ACS -ECHO -normal finding , normal EF , no wall motion abnormality -appreciate input form Cardiology -pt continues to hyperventilate , continues to complain of SOB /chest heaviness -Spo2 99% in RA -Zoloft was discontinues as pt reports his symptom precipitates to causing him ER visit since he started on SSRI ( took for 2 days ) -ordered for Ativan PRN -pt mentions of significant agarophobia -can be outside with crowd , can not go to park -Psych consult requested for eval and medication recommendation CHEST PAIN, SHORTNESS OF BREATH -due to above cardiac work up been negative ; D/C nitro paste -CT chest negative for PE -no hypoxia noted in pulse ox 99% in RA -has been a long standing problem for the patient for the past 2 years and per his reports has had an extensive work up DEPRESSION : pt mentions of being hopeless waking up early in morning -feeling there is no reason to live any more no suicidal ideation was started on Zoloft -at [facility] for the symptom -was stopped as he mentions be cold and clammy /drenching sweats with this started on Bus[place] this admission Psych eval requested BPH - continue Flomax DVT PROPHYLAXIS sub q heparin DISPOSITION -stable to transfer to medical floor expected to be discharged home when medically stable will need out pt Psychiatry follow up for management of Anxiety Disorder follows at [facility] UPDATE AT BEDSIDE Vital Signs: Date Time Temp Pulse Resp B/P (MAP) Pulse Ox O2 Delivery O2 Flow Rate FiO2 12/15/16 07:45 36.6 62 16 126/65 (85) 96 Room Air 12/15/16 06:03 129/68 (88) 12/15/16 04:00 Room Air 12/15/16 03:07 36.7 66 16 114/59 (77) 97 Room Air 12/15/16 00:01 Room Air 12/14/16 23:18 36.9 57 16 122/70 (87) 96 Room Air 12/14/16 20:00 Room Air 12/14/16 19:21 36.5 55 18 126/76 (93) 98 Room Air 12/14/16 18:23 61 18 125/77 (93) 97 Room Air 12/14/16 16:22 146/83 (104) 12/14/16 16:00 99 Room Air 12/14/16 15:10 36.4 66 20 152/92 99 Room Air 12/14/16 15:00 65 20 139/87 98 12/14/16 14:45 65 15 139/87 98 Room Air 12/14/16 13:42 65 20 154/91 98 Room Air 12/14/16 13:17 73 12/14/16 11:42 68 19 149/84 97 Room Air 12/14/16 10:39 75 22 143/81 98 Room Air 12/14/16 10:20 69 12/14/16 10:20 71 40 156/85 99 Room Air 12/14/16 10:16 99 Room Air Lab Results: Results Past 24 Hours Test 12/14/16 10:30 12/14/16 10:44 12/14/16 14:30 12/14/16 16:00 Range/Units White Blood Count 7.59 4.8-10.8 K/uL Red Blood Count 5.27 4.7-6.1 M/uL Hemoglobin 16.7 14.0-18.0 g/dL Hematocrit 44.7 42-52 % Mean Corpuscular Volume 84.8 80-100 fL Mean Corpuscular Hemoglobin 31.7 25-34 pg Mean Corpuscular Hemoglobin Concent 37.4 32-36 g/dl RDW Standard Deviation 41.2 36.4-46.3 fL RDW Coefficient of Variation 13.3 11.5-14.5 % Platelet Count 310 130-400 K/uL Mean Platelet Volume 9.4 7.4-10.4 fL Prothrombin Time 10.8 9.0-12.0 SECONDS Prothromb Time International Ratio 1.0 0.9-1.1 Activated Partial Thromboplast Time 27.1 21.0-31.0 SECONDS Partial Thromboplastin Ratio 1.0 D-Dimer 370 0-500 ug/L FEU Sodium Level 139 136-145 mmol/L Potassium Level 3.6 3.5-5.1 mmol/L Chloride Level 108 98-107 mmol/L Carbon Dioxide Level 20 21-32 mmol/L Anion Gap 11.0 3-11 mmol/L Blood Urea Nitrogen 12 7-18 mg/dl Creatinine 1.60 0.60-1.40 mg/dl Est Creatinine Clear Calc Drug Dose 64.3 ml/min Estimated GFR () 53.1 Estimated GFR (Non- 45.8 BUN/Creatinine Ratio 7.2 10-20 Random Glucose 148 70-99 mg/dl Calcium Level 9.6 8.5-10.1 mg/dl Total Bilirubin 0.7 0.2-1 mg/dl Aspartate Amino Transf (AST/SGOT) 24 15-37 U/L Alanine Aminotransferase (ALT/SGPT) 38 12-78 U/L Alkaline Phosphatase 77 45-117 U/L Total Creatine Kinase 278 39-308 U/L Creatine Kinase MB 2.5 0.5-3.6 ng/ml Creatine Kinase MB Ratio 0.9 0-3.0 Total Protein 7.6 6.4-8.2 gm/dl Albumin 3.9 3.4-5.0 gm/dl Globulin 3.7 2.5-4.0 gm/dl Albumin/Globulin Ratio 1.1 0.9-2 Bedside Troponin I 0.360 0-0.045 ng/ml Arterial Blood pH 7.47 7.35-7.45 Arterial Blood Partial Pressure CO2 26 35-46 mmHg Arterial Blood Partial Pressure O2 69 80-95 mm/Hg Arterial Blood HCO3 18 19-24 mmol/L Arterial Blood Oxygen Saturation 94.9 90-95 % Arterial Blood Base Excess -3.4 -9-1.8 mEq/L Arterial Blood Gas Delivery ROOM AIR Britton Test POS POS Test 12/14/16 16:02 12/14/16 22:00 12/14/16 22:03 12/15/16 06:01 Range/Units Creatine Kinase MB 1.8 1.9 0.5-3.6 ng/ml Troponin I 0.016 0.021 0-0.045 ng/ml Hepatitis C Antibody Screen NEG NEG Creatine Kinase MB Ratio 0-3.0 White Blood Count 9.25 4.8-10.8 K/uL Red Blood Count 5.19 4.7-6.1 M/uL Hemoglobin 15.8 14.0-18.0 g/dL Hematocrit 44.4 42-52 % Mean Corpuscular Volume 85.5 80-100 fL Mean Corpuscular Hemoglobin 30.4 25-34 pg Mean Corpuscular Hemoglobin Concent 35.6 32-36 g/dl RDW Standard Deviation 42.6 36.4-46.3 fL RDW Coefficient of Variation 13.5 11.5-14.5 % Platelet Count 301 130-400 K/uL Mean Platelet Volume 9.4 7.4-10.4 fL Sodium Level 141 136-145 mmol/L Potassium Level 4.0 3.5-5.1 mmol/L Chloride Level 109 98-107 mmol/L Carbon Dioxide Level 23 21-32 mmol/L Anion Gap 9.0 3-11 mmol/L Blood Urea Nitrogen 15 7-18 mg/dl Creatinine 1.50 0.60-1.40 mg/dl Est Creatinine Clear Calc Drug Dose 68.6 ml/min Estimated GFR () 57.4 Estimated GFR (Non- 49.5 BUN/Creatinine Ratio 10.2 10-20 Random Glucose 109 70-99 mg/dl Calcium Level 8.9 8.5-10.1 mg/dl Triglycerides Level 116 0-150 mg/dl Cholesterol Level 162 0-200 mg/dl HDL Cholesterol 36 mg/dl LDL Cholesterol, Calculated 103 mg/dl VLDL Cholesterol, Calculated 23 mg/dl Cholesterol/HDL Ratio 4.5
--- NOTE | 2016-12-15 10:40 | Cardiology Follow-Up ---
Subjective General Date of Service: Dec 15, 2016. Chief Complaint: follow up shortness of breath Pt evaluation today including: conversation w/ patient, conversation w/ family , physical exam History of Present Illness Patient seen in cardiology follow-up today with initial consultation having been performed yesterday by Dr. Bhatia. Telemetry reveals no significant arrhythmia. His initial troponin performed in the emergency room I [id number] testing was mildly elevated and follow-up levels have been within normal limits. Echocardiogram revealed no significant abnormalities. In retrospect it would appear that his shortness of breath and mild troponin elevation due to significant anxiety/hyperventilation. Heart rates are better on low-dose metoprolol. Allergies Coded Allergies: Amoxicillin (Verified Allergy, Mild, RASH, 12/14/16) Social History Smoking Status: Former Smoker Hx Tobacco Use In Past Year?: No Hx Alcohol Use - Type And Amou: Yes (Occasional ) Hx Substance Use - Type And Am: No Problem List Medical Problems: (1) NSTEMI (non-ST elevated myocardial infarction) Status: Acute Physical Exam Vital Signs Last Vital Signs Documentation Date Time Temp Pulse Resp B/P (MAP) Pulse Ox O2 Delivery O2 Flow Rate FiO2 12/15/16 07:45 36.6 62 16 126/65 (85) 96 Room Air Physical Exam Constitutional: Level of Distress: NAD ENMT: normal ENT inspection Neck: supple Lungs: Auscultation: no wheezing, no rales/crackles, no rhonchi Cardiovascular: Heart Auscultation: RRR, no murmurs, pertinent finding (noted pectus excavatum deformity of the chest) Extremities: no edema Neurologic: Gait & Station: pertinent finding (no focal neurologic deficits) Assessment and Plan Assessment and Plan Last Resulted 12/15/16 06:01 Last Resulted 12/15/16 06:01 Past 24 Hours Test 12/14/16 16:00 12/14/16 16:02 12/14/16 22:00 12/14/16 22:03 Range/Units Creatine Kinase MB Ratio 0-3.0 Creatine Kinase MB 1.8 1.9 0.5-3.6 ng/ml Troponin I 0.016 0.021 0-0.045 ng/ml Impression: 61-year-old male with anxiety, hyperventilation and resultant myocardial strain from severe hyperventilation. Serial EKGs of been within normal limits as his resting echocardiogram. Plan: Case discussed with Dr. Alvarez. I agree with the plan to transfer him off of telemetry and for psychiatry evaluation for anxiety. Further cardiac testing is necessary at the present time. Luís Andrade DO Laboratory Results Last 24 Hours Test 12/14/16 10:44 12/14/16 14:30 12/14/16 16:00 12/14/16 16:02 Bedside Troponin I 0.360 ng/ml Arterial Blood pH 7.47 Arterial Blood Partial Pressure CO2 26 mmHg Arterial Blood Partial Pressure O2 69 mm/Hg Arterial Blood HCO3 18 mmol/L Arterial Blood Oxygen Saturation 94.9 % Arterial Blood Base Excess -3.4 mEq/L Arterial Blood Gas Delivery ROOM AIR Britton Test POS Creatine Kinase MB Ratio Creatine Kinase MB 1.8 ng/ml Troponin I 0.016 ng/ml Hepatitis C Antibody Screen NEG Test 12/14/16 22:00 12/14/16 22:03 12/15/16 06:01 Creatine Kinase MB Ratio Creatine Kinase MB 1.9 ng/ml Troponin I 0.021 ng/ml White Blood Count 9.25 K/uL Red Blood Count 5.19 M/uL Hemoglobin 15.8 g/dL Hematocrit 44.4 % Mean Corpuscular Volume 85.5 fL Mean Corpuscular Hemoglobin 30.4 pg Mean Corpuscular Hemoglobin Concent 35.6 g/dl RDW Standard Deviation 42.6 fL RDW Coefficient of Variation 13.5 % Platelet Count 301 K/uL Mean Platelet Volume 9.4 fL Sodium Level 141 mmol/L Potassium Level 4.0 mmol/L Chloride Level 109 mmol/L Carbon Dioxide Level 23 mmol/L Anion Gap 9.0 mmol/L Blood Urea Nitrogen 15 mg/dl Creatinine 1.50 mg/dl Est Creatinine Clear Calc Drug Dose 68.6 ml/min Estimated GFR () 57.4 Estimated GFR (Non- 49.5 BUN/Creatinine Ratio 10.2 Random Glucose 109 mg/dl Calcium Level 8.9 mg/dl Triglycerides Level 116 mg/dl Cholesterol Level 162 mg/dl HDL Cholesterol 36 mg/dl LDL Cholesterol, Calculated 103 mg/dl VLDL Cholesterol, Calculated 23 mg/dl Cholesterol/HDL Ratio 4.5
[2016-12-15 10:59] VITALS: BP 126/65; PULSE 62; TEMP 36.6; O2SAT 96
[2016-12-15 11:13] VITALS: BP 146/77; PULSE 77; TEMP 36.6; O2SAT 100
--- NOTE | 2016-12-15 13:34 | Psychiatric Consultation ---
Consultation Date of Consultation Dec 15, 2016. Identifying Data Clement Rasheed is a 61-year-old male who presented to the emergency room with complaints of chest pain and sweating. He was admitted to the telemetry unit to rule out ACS. We are consulted to evaluate depression and anxiety. Information is gathered from the patient, his , and the electronic medical record, all are considered to be reliable. Chief Complaint "I knew something was wrong.". History of Present Illness Clement Rasheed is a 61-year-old gentleman from [facility],. He has a past medical history including BPH, solitary kidney, and tinnitus. He denies any past psychiatric treatment although endorses a lifelong struggle with anxiety. He says that he has always been anxious and has panic attacks that occur when in crowds. His also adds that he has anxiety attacks that appear to come out of nowhere. 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 He is currently looking for work and he has no insurance. The lack of insurance has discouraged him from getting medical and psychiatric care, not being able to afford his co-pays. They have begun seeing a physician at [facility] who recently put the patient on Zoloft. He was to have taken 25 mg for 4 days before increasing to 50 mg, however the patient decided just to take 50 mg from the outset. Yesterday, he began experiencing hot flashes with him and sweating, a burning sensation that extended from his pelvis toward his chest, and nonradiating chest pain. These sensations were different from his regular panic attacks and so asked his to bring him to the hospital. The patient has been seen by cardiology and no cardiac etiology has been found and they suspect that anxiety is playing a part. The patient admits that his mood is depressed and anxious. His mood has been in deterioration for approximately 6 months. His sleep is disturbed with both difficulty falling asleep as well as staying asleep, feeling restless and getting only about 3 hours of broken sleep per night. His appetite has been fluctuating, weight going up and down. Recently he has lost 8 or 9 pounds. His anxiety is chronic and panic attacks more frequent. His says lately he has been having them "24 7" and without specific triggers. She says that she can tell when he is getting anxious and their children describe it as him "freaking out". He does experience some stuttering when anxious. He denies that he is having active suicidal ideation, however at times has passive wishes for , thinking that if he were to would not be a problem. He denies any symptoms of obsessive-compulsive disorder. He denies ever having had auditory or visual hallucinations. He denies any symptoms that would be congruent with a bipolar disorder. Past Psychiatric History Current OP Treatment: no current treatment Prior OP Treatment: no prior treatment Prior Psych Hospitalizations: none Access to a Gun: No Suicide Attempts: No Past Medication Trials Effexor which he did not feel was effective Past Medical/Surgical History History of Concussion/Seizure: No (1) BPH (benign prostatic hyperplasia) (2) Solitary kidney (3) Intestinal malrotation Allergies Allergies: Coded Allergies: Amoxicillin (Verified Allergy, Mild, RASH, 12/14/16) Home Medications Scheduled Sertraline (Zoloft), 50 MG PO DAILY Tamsulosin Hcl (Flomax), 0.4 MG PO DAILY Family History FHx: lung disease History of Suicide: No History of Substance Abuse: Yes (son is an alcoholic) Psychiatric History: No Alcohol Use Alcohol Use In Past 12 Months: No Smoking Use Smoking Status: Former Smoker Substance History None Personal History [place] Education: graduated from high school Work History: 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 Currently to his second for 9 years) Children: 2 Legal History: none Psychological Trauma History: Other (none) Review of Systems Constitutional: malaise Eyes: denies: no symptoms, as stated in HPI, eye pain, tearing, itching, redness, discharge, double vision, visual changes, blurred vision, photophobia, other ENT: reports: loss of hearing, tinnitus Cardiovascular: reports: chest pain (nonradiating), diaphoresis Respiratory: reports: short of breath (with anxiety) Gastrointestinal: other (chronic diarrhea alternating with constipation status post surgery for bowel malrotation) Genitourinary - Male: denies: no symptoms, see HPI, rash, amenorrhea, penile itching, penile discharge, testicular pain, testicular swelling, impotence, other Musculoskeletal: denies no symptoms reported, denies see HPI, denies back pain , denies gout, denies joint pain, denies joint swelling, denies muscle pain, denies muscle stiffness, denies neck pain, denies other Integumentary: denies no symptoms reported, denies see HPI, denies change in color, denies change in hair/nails, denies dryness, denies lesions, denies lumps , denies rash, denies other Neurologic: denies: no symptoms, see HPI, headache, numbness, paresthesias, pre -existing deficit, seizure, tingling, tremors, general weakness, tics, focal weakness, vertigo, lethargy, memory loss, dizziness, other Hematologic / Lymphatic: denies: no symptoms, as stated in HPI, abnormal clotting, adenopathy, anemia, easy bleeding, easy bruising, gums bleeding, petechiae, other Examination Physical Examination As per Dr. Alvarez Vital Signs Vital Signs Past 12 Hours Date Time Temp Pulse Resp B/P (MAP) Pulse Ox O2 Delivery O2 Flow Rate FiO2 12/15/16 11:13 36.6 77 18 146/77 (100) 100 Room Air 12/15/16 10:59 36.6 62 16 96 12/15/16 08:00 Room Air 12/15/16 07:45 36.6 62 16 126/65 (85) 96 Room Air 12/15/16 06:03 129/68 (88) 12/15/16 04:00 Room Air 12/15/16 03:07 36.7 66 16 114/59 (77) 97 Room Air Laboratory Results Last 24 Hours Test 12/14/16 14:30 12/14/16 16:00 12/14/16 16:02 12/14/16 22:00 Arterial Blood pH 7.47 Arterial Blood Partial Pressure CO2 26 mmHg Arterial Blood Partial Pressure O2 69 mm/Hg Arterial Blood HCO3 18 mmol/L Arterial Blood Oxygen Saturation 94.9 % Arterial Blood Base Excess -3.4 mEq/L Arterial Blood Gas Delivery ROOM AIR Britton Test POS Creatine Kinase MB Ratio Creatine Kinase MB 1.8 ng/ml Troponin I 0.016 ng/ml Hepatitis C Antibody Screen NEG Test 12/14/16 22:03 12/15/16 06:01 Creatine Kinase MB 1.9 ng/ml Troponin I 0.021 ng/ml White Blood Count 9.25 K/uL Red Blood Count 5.19 M/uL Hemoglobin 15.8 g/dL Hematocrit 44.4 % Mean Corpuscular Volume 85.5 fL Mean Corpuscular Hemoglobin 30.4 pg Mean Corpuscular Hemoglobin Concent 35.6 g/dl RDW Standard Deviation 42.6 fL RDW Coefficient of Variation 13.5 % Platelet Count 301 K/uL Mean Platelet Volume 9.4 fL Sodium Level 141 mmol/L Potassium Level 4.0 mmol/L Chloride Level 109 mmol/L Carbon Dioxide Level 23 mmol/L Anion Gap 9.0 mmol/L Blood Urea Nitrogen 15 mg/dl Creatinine 1.50 mg/dl Est Creatinine Clear Calc Drug Dose 68.6 ml/min Estimated GFR () 57.4 Estimated GFR (Non- 49.5 BUN/Creatinine Ratio 10.2 Random Glucose 109 mg/dl Calcium Level 8.9 mg/dl Triglycerides Level 116 mg/dl Cholesterol Level 162 mg/dl HDL Cholesterol 36 mg/dl LDL Cholesterol, Calculated 103 mg/dl VLDL Cholesterol, Calculated 23 mg/dl Cholesterol/HDL Ratio 4.5 Mental Examination During interview pt is: alert and oriented, cooperative Appearance: appropriately dressed, appropriately groomed Eye contact is: good Motor behavior is: no abnormal motor movements Speech: normal in rate, rhythm & volume (with occasional stuttering) Affect: blunted Mood is: depressed, anxious Thought process: goal directed Thought content: reality based without delusions Suicidal thought are: denied Homicidal thoughts are: denied Hallucinations: denies auditory, denies visual Cognition: memory grossly intact, attention grossly intact, language grossly intact Intelligence estimated to be: average Insight: fair Judgement: fair Impression / Recommendations Impression 61-year-old gentleman admitted with chest pain, diaphoresis. Cardiac etiologies have been ruled out. His symptoms could be seen in the context of anxiety and possible side effect to Zoloft in that SSRIs can cause sweating. This is less likely given the fact that he has been on it only for a short while at low dose. I believe he would benefit from continuing to titrate the Zoloft. I have given him the option to proceed with a very slow and low titration or to continue from where he is and increase it to 75 mg. He would like to proceed. We have also discussed the value of counseling however they are economically stressed and cannot afford that and [facility] does not offer counseling. I have encouraged him that if his mood deteriorates to the point of suicidality, that he should come to the emergency room, regardless of his insurance status. They do plan to apply for medical assistance again now that his unemployment is finished. If the patient were going to be in the hospital Saturday, I would ask the billing office to come help them initiate that application while here in the hospital. He has good support in his , is not acutely suicidal, and has agreed to call [facility] on Saturday to see if his appointment can be moved up. I do not think he meets criteria for inpatient mental health treatment at this time. He will likely need higher doses of SSRIs in deference to his severe anxiety and panic disorder. Inventory Assets Strengths: Love of his and family, hard worker Risk Factors Assessment Male: Yes : Yes /single/: No Higher / Fall in social status: No Access to guns: No Health problems: Yes Mental Health Diagnoses: Yes Substance use disorders: No Previous attempt: No Previous psychiatric stay: No Hopelessness: No Smoker: No Protective Factors Assessment : Yes Responsible for young children: No Employed: No Stable relationships: Yes Supportive family: Yes Recommendations (1) Anxiety 12/17 - Increase zoloft to 75 mg. daily - Continue Buspar 7.5 mg BID started here in the hospital - I have reviewed potential side effects to SSRI's and the patient wants to proceed with titration - Patient cannot afford counseling, but encouraged to appy for [facility] and consider after its in place. - Encouraged to come to the ERif depression or anxiety deteriorate. - Does not meet criteria for inpatient mental health treatment. - He and agree to call [facility] on Saturday to move appt up with their doctor. Has been reviewed with Dr. Dominguez
[2016-12-15] MEDS ORDERED: SERTRALINE HCL 50 MG TAB PO ONE (14:00)
[2016-12-15] MEDS ORDERED: LPR25 PO (14:29)
[2016-12-15] MEDS ORDERED: BSP15 PO (14:30)
[2016-12-15] MEDS ORDERED: ZLF50 PO (14:30)
--- NOTE | 2016-12-15 14:31 | Discharge Instructions ---
Discharge Instructions Date of Service Dec 15, 2016. Admission Reason for Admission: chest pain Discharge Discharge Diagnosis / Problem: ANXIETY DISORDER /NO EVIDENCE OF ACUTE CORONARY EVENT Discharge Goals Goal(s): Decrease discomfort, Diagnostic testing Activity Recommendations Activity Limitations: resume your previous activity . Instructions / Follow-Up Instructions / Follow-Up FOLLOW UP WITH PHYSICIAN AT [facility] IN A WEEK FOR HOSPITAL FOLLOW UP NEED FOLLOW UP WITH PSYCHIATRY FOR CONTINUED MANAGEMENT OF ANXIETY DISORDER / DEPRESSION Current Hospital Diet Patient's current hospital diet: AHA Diet (Heart Healthy) Discharge Diet Recommended Diet: AHA Diet (Heart Healthy) Pending Studies Studies pending at discharge: no Laboratory Results Lipid Panel Test 12/15/16 06:01 Range/Units Triglycerides Level 116 0-150 mg/dl Cholesterol Level 162 0-200 mg/dl HDL Cholesterol 36 mg/dl Cholesterol/HDL Ratio 4.5 LDL Cholesterol, Calculated 103 mg/dl Medical Emergencies . Who to Call and When: Medical Emergencies: If at any time you feel your situation is an emergency, please call 911 immediately. . Non-Emergent Contact Non-Emergency issues call your: Primary Care Provider . . "Provider Documentation" section prepared by Leticia Alvarez. . VTE Core Measure Inpt VTE Proph given/why not?: Unfractionated heparin SQ
[2016-12-15 14:34] VITALS: BP 146/77; PULSE 77; TEMP 36.6; O2SAT 100
[2016-12-15] MEDS ORDERED: DSY50 PO (14:39)
[2016-12-15] MEDS ORDERED: METOPROLOL TARTRATE 25 MG TAB PO SCH ×2 (14:45→21:00)
[2016-12-15] MEDS ORDERED: BusPIRone 15 MG TAB PO SCH (14:45)
[2016-12-15] MEDS ORDERED: TRAZODONE HCL 50 MG TAB PO SCH ×2 (14:45→21:00)
--- NOTE | 2016-12-15 20:09 | Discharge Summary ---
Discharge Summary Date of Service Dec 15, 2016. Discharge Summary Admission Date: Dec 14, 2016 at 13:30 Discharge Date: Dec 15, 2016 Discharge Disposition: Home Principal Diagnosis: ANXIETY DISORDER /NO EVIDENCE OF ACUTE CORONARY EVENT Procedures: ECHO : Procedure Details * A complete two-dimensional transthoracic echocardiogram was performed (2D, M-mode, Doppler and color flow Doppler). Left Ventricle * The left ventricle is normal in size. * There is normal left ventricular wall thickness. * Ejection Fraction = 60-65%. * Left ventricular systolic function is normal. * The left ventricular wall motion is normal. CTA OF CHEST : IMPRESSION: 1. There is no evidence of pulmonary embolus in the main, lobar, or segmental pulmonary arteries. 2. The lungs are clear. Consultations: Psychiatry Cardiology Medication Reconciliation New Medications: Buspirone HCl (Buspirone HCl) 15 Mg Tab 7.5 MG PO BID for 30 Days, #30 TAB 2 Refills Metoprolol Tartrate (Lopressor) 25 Mg Tab 12.5 MG PO BID for 30 Days, #30 TAB 2 Refills Sertraline HCl (Sertraline HCl) 50 Mg Tab 75 MG PO QAM for 30 Days, #45 TAB 2 Refills Trazodone HCl (Trazodone HCl) 50 Mg Tab 50 MG PO HS for 30 Days, #30 TAB 2 Refills Continued Medications: Tamsulosin Hcl (Flomax) 0.4 Mg Cap 0.4 MG PO DAILY Discontinued Medications: Sertraline (Zoloft) 50 Mg Tab 50 MG PO DAILY Admission Information HPI (per Admitting provider): 61 year old male who presents to the ER with chest pain. Patient reports a long standing history of shortness of breath for the past two years. 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 Patient reports that he develops shortness of breath with minimal exertion and also sometimes at rest. Today while sitting on the couch watching TV the front of his body from his head to his waist started to tingled. He then felt very hot and broke out in severe diaphoresis. He also reports associated chest pain that was located midsternal. He describes the pain as a stabbing and rates it #9/10 at its worst. He then presented to the ER. He was topical nitro and had almost complete resolution of the pain. Patient denies associated nausea, lightheadedness, or dizziness. No recent illnesses, fever, or chills. He denies abdominal pain, vomiting, or diarrhea. No urinary symptoms. In the ER, EKG does not show any acute ST changes but troponin is mildly elevated at 0.360. CTA chest is negative for PE. He was given full dose ASA, topical nitro, Ativan, and IVF. Physical Exam (per Admitting): General Appearance: + mild distress (tachypnea) Head: normocephalic Eyes: normal inspection ENT: hearing grossly normal Neck: supple, no JVD Respiratory/Chest: lungs clear, normal breath sounds, + respiratory distress (mild tachypnea - patient reports chronic ), + pertinent finding (pectus excavatum noted ) Cardiovascular: regular rate, rhythm, no edema, normal peripheral pulses Abdomen/GI: normal bowel sounds, non tender, soft Extremities/Musculoskelatal: normal inspection, no calf tenderness Neurologic/Psych: no motor/sensory deficits, alert, normal mood/affect, oriented x 3 Skin: normal color, warm/dry Hospital Course ANXIETY DISORDER /PANIC ATTACK /AGAROPHOBIA : -possible causing chest pain /diaphoresis /tingling numbness of ext -cardiac work up negative for ACS -ECHO -normal finding , normal EF , no wall motion abnormality -appreciate input form Cardiology -pt continues to hyperventilate , continues to complain of SOB /chest heaviness -Spo2 99% in RA -Zoloft was discontinues as pt reports his symptom precipitates to causing him ER visit since he started on SSRI ( took for 2 days ) -ordered for Ativan PRN -pt mentions of significant agarophobia -can be outside with crowd , can not go to park -Psych consult requested for eval and medication recommendation CHEST PAIN, SHORTNESS OF BREATH -due to above cardiac work up been negative ; D/C nitro paste -CT chest negative for PE -no hypoxia noted in pulse ox 99% in RA -has been a long standing problem for the patient for the past 2 years and per his reports has had an extensive work up DEPRESSION : pt mentions of being hopeless waking up early in morning -feeling there is no reason to live any more no suicidal ideation was started on Zoloft -at [facility] for the symptom -was stopped as he mentions be cold and clammy /drenching sweats with this started on Busper this admission Psych eval requested BPH - continue Flomax DVT PROPHYLAXIS sub q heparin DISPOSITION -stable to transfer to medical floor expected to be discharged home when medically stable will need out pt Psychiatry follow up for management of Anxiety Disorder follows at [facility] UPDATE AT BEDSIDE Total time spent on discharge = 35 mins This includes examination of the patient, discharge planning, medication reconciliation, and communication with other providers. Discharge Instructions DI: Medical v4 Discharge Instructions Date of Service Dec 15, 2016. Admission Reason for Admission: chest pain Discharge Discharge Diagnosis / Problem: ANXIETY DISORDER /NO EVIDENCE OF ACUTE CORONARY EVENT Discharge Goals Goal(s): Decrease discomfort, Diagnostic testing Activity Recommendations Activity Limitations: resume your previous activity . Instructions / Follow-Up Instructions / Follow-Up FOLLOW UP WITH PHYSICIAN AT [facility] IN A WEEK FOR HOSPITAL FOLLOW UP NEED FOLLOW UP WITH PSYCHIATRY FOR CONTINUED MANAGEMENT OF ANXIETY DISORDER / DEPRESSION Current Hospital Diet Patient's current hospital diet: AHA Diet (Heart Healthy) Discharge Diet Recommended Diet: AHA Diet (Heart Healthy) Pending Studies Studies pending at discharge: no Laboratory Results Lipid Panel Test 12/15/16 06:01 Range/Units Triglycerides Level 116 0-150 mg/dl Cholesterol Level 162 0-200 mg/dl HDL Cholesterol 36 mg/dl Cholesterol/HDL Ratio 4.5 LDL Cholesterol, Calculated 103 mg/dl Medical Emergencies . Who to Call and When: Medical Emergencies: If at any time you feel your situation is an emergency, please call 911 immediately. . Non-Emergent Contact Non-Emergency issues call your: Primary Care Provider . . "Provider Documentation" section prepared by Leticia Alvarez. . VTE Core Measure Inpt VTE Proph given/why not?: Unfractionated heparin SQ
[2016-12-16] MEDS ORDERED: SERTRALINE HCL 50 MG TAB PO SCH (09:00)
[2017-03-12] MEDS ORDERED: TRAZ1TAB52 PO (08:31)
[2017-03-12] MEDS ORDERED: BUSP-8 PO (08:31)
[2017-03-12] MEDS ORDERED: SERT100T PO (08:31)
[2017-03-12] MEDS ORDERED: METH500T37 PO (08:31)
[2017-03-13] MEDS ORDERED: ACET-1256 PO (16:01)
[2017-03-15] MEDS ORDERED: HYDR-5688 PO (07:50)
== END 2016-12-15 15:25 | disposition home or self-care (01) | DRG 880 ==
LOC: C.EDB 10:03 → C.2E 13:30 → ENRESERV 13:49 → C.MS2W 12-15 11:05
PROVIDERS: ADMIT Family Medicine; ATTEND Hospitalist
DX: F41.9 Anxiety disorder, unspecified (principal); Q60.0 Renal agenesis, unilateral; F40.01 Agoraphobia with panic disorder; R06.02 Shortness of breath; Q67.6 Pectus excavatum; R77.8 Other specified abnormalities of plasma proteins; R06.4 Hyperventilation; F32.9 Major depressive disorder, single episode, unspecified; E78.5 Hyperlipidemia, unspecified; N40.0 Benign prostatic hyperplasia without lower urinary tract symptoms; Z87.891 Personal history of nicotine dependence; Z79.899 Other long term (current) drug therapy

== ENCOUNTER → 2017-02-04 | Outpatient (CLI) | payer OTHER ==
[~2017-02-04] MED LIST changes: -SERT50TA PO
[2017-02-04 20:39] LABS: LYME DISEASE AB IGG NEG (NEG); LYME DISEASE AB IGM NEG (NEG)
== END | disposition home or self-care (01) ==
LOC: C.LABPVFM 11:53
PROVIDERS: ATTEND Nurse Practitioner
DX: R53.1 Weakness (principal); R42 Dizziness and giddiness; R25.1 Tremor, unspecified

== ENCOUNTER → 2017-02-18 | Outpatient (CLI) | payer OTHER ==
[2017-02-18 13:22] LABS: ESTIMATED AVERAGE GLUCOSE 117 mg/dl; HA1C FLAG Normal (Normal)
[2017-02-19 17:45] LABS: ALBUMIN 4.5 G/DL (3.8-4.8); TOTAL PROTEIN 7.3 G/DL (6.2-8.3)
[2017-02-21 04:20] LABS: ANTI-CENTROMERE AB <1.0 NEG AI (<1.0 NEG); ANTI-SS-A <1.0 NEG AI (<1.0 NEG); ANTI-SS-B <1.0 NEG AI (<1.0 NEG); DNA ds CRITHIDIA NEGATIVE (NEGATIVE); MICROSOMAL AB 2 IU/ML (<9); Sm Antibody <1.0 NEG AI (<1.0 NEG)
[2017-02-21 18:19] LABS: ACETYLCHOLINE RECEP MODULATING 10; ACETYLCHOLINE RECEPT BLOCKING <15 % inhibit (<15); RECEPTOR BINDING AB <0.30 nmol/L (<=0.30)
== END | disposition home or self-care (01) ==
LOC: C.LABPVFM 09:29
PROVIDERS: ATTEND Psychiatry & Neurology Neurology
DX: G62.9 Polyneuropathy, unspecified (principal); H53.2 Diplopia; R73.9 Hyperglycemia, unspecified; R06.89 Other abnormalities of breathing; R53.1 Weakness

== ENCOUNTER → 2017-03-01 | Outpatient (CLI) | payer OTHER ==
--- NOTE | 2017-03-01 10:29 | DIAGNOSTIC IMAGING REPORT ---
MRI OF THE BRAIN WITHOUT CONTRAST CLINICAL HISTORY: New onset headache after age 50. Dyspnea on exertion. COMPARISON STUDY: MRI the brain July 17, 2012. TECHNIQUE: Utilizing a 1.5 Pinky magnet and dedicated coil, multiplanar, multiecho imaging of the brain was performed without IV contrast. FINDINGS: There are no areas of restricted diffusion. No acute intracranial hemorrhage, midline shift or mass effect is present. Brain volume is normal. Ventricular system is normal. The basilar cisterns are patent. There are no extra-axial collections. Flow-voids for the major intracranial vessels are present. A near branching structure within the left cerebellar hemisphere is unchanged since MRI of July 17, 2012. This is consistent with a developmental venous anomaly. A few small foci of signal abnormality within the white matter are noted. Only minimal progression is shown since exam of July 17, 2012. This suggest minimal small vessel disease. Calvarial signal is maintained. Orbits and sinuses are unremarkable with the exception of a small left maxillary sinus mucous retention cyst. There is no fluid within the mastoid air cells. No intracranial masses are identified on this unenhanced exam. IMPRESSION: 1. No acute intracranial findings. 2. Minimal presumed small vessel disease. 3. No change in the developmental venous anomaly within the left cerebellar hemisphere, an incidental finding of no clinical significance. Electronically signed by: Alen Galicia M.D. 03/01/2017 10:28 AM Dictated Date/Time: 03/01/2017 10:23 AM
== END | disposition home or self-care (01) ==
LOC: C.MRI 08:53
PROVIDERS: ATTEND Psychiatry & Neurology Neurology
DX: R06.09 Other forms of dyspnea (principal); R51 Headache

== ENCOUNTER → 2017-03-04 | Outpatient (CLI) | payer OTHER ==
[2017-03-04 18:26] LABS: BASO % 0.8 %; BASO ABS # 0.08 K/uL (0-0.2); COMPLETE YES; EOS % 1.4 %; HEMATOCRIT 45.5 % (42-52); IG% 0.4 %; LYMPH % 22.1 %; LYMPH ABS # 2.27 K/uL (1.2-3.4); MEAN CELL VOLUME 86.8 fL (80-100); MEAN CORPUSCULAR HEMOGLOBIN 30.5 pg (25-34); MEAN CORPUSCULAR HGB CONC 35.2 g/dl (32-36); MEAN PLATELET VOLUME 9.1 fL (7.4-10.4); MONO % 8.7 %; NEUT % 66.6 %; PLATELET COUNT 296 K/uL (130-400); RED BLOOD COUNT 5.24 M/uL (4.7-6.1); WHITE BLOOD COUNT 10.26 K/uL (4.8-10.8)
[2017-03-04 18:29] LABS: BLOOD UREA NITROGEN 14 mg/dl (7-18); BUN/CREATININE RATIO 9.3 (10-20); CALCIUM 9.6 mg/dl (8.5-10.1); CARBON DIOXIDE 26 mmol/L (21-32); CHLORIDE 104 mmol/L (98-107); GLUCOSE 89 mg/dl (70-99); POTASSIUM 4.1 mmol/L (3.5-5.1); SODIUM 137 mmol/L (136-145)
== END | disposition home or self-care (01) ==
LOC: C.CPL 16:38
PROVIDERS: ATTEND Orthopaedic Surgery
DX: Z01.818 Encounter for other preprocedural examination (principal); S83.231A Complex tear of medial meniscus, current injury, right knee, initial encounter; X58.XXXA Exposure to other specified factors, initial encounter

== ENCOUNTER → 2017-03-15 | Day surgery (SDC) | payer OTHER ==
[2017-03-12 08:33] VITALS: BMI 24.0
[2017-03-13 16:02] VITALS: BMI 24.0
--- NOTE | 2017-03-14 18:56 | HISTORY & PHYSICAL EXAMINATION ---
DATE OF ADMISSION: 03/15/2017 HISTORY AND PHYSICAL ADMISSION NOTE CHIEF COMPLAINT: Complex medial meniscal tear of the right knee. HISTORY OF PRESENT ILLNESS: Clement is a pleasant 61-year-old male who has been having a one year history of right knee pain. He does not recall any traumatic event, but it has been progressively getting worse. He has been treated by his primary care physician and had an MRI which showed a meniscus tear. After failing extensive conservative treatment, he has elected to proceed with knee arthroscopy. PAST MEDICAL HISTORY: Significant for atrial fibrillation, depression, hypertension, chronic kidney disease with a single kidney. PAST SURGICAL HISTORY: Significant for bilateral carpal tunnel release, malrotation of his bowels, and a cat bite to his hand. ALLERGIES: AMOXICILLIN. MEDICATIONS: Include Wellbutrin, metoprolol, Zoloft, trazodone, Flomax and Robaxin. FAMILY HISTORY: Noncontributory. SOCIAL HISTORY: He is . He rarely drinks. He has 2 children. Smokes a pack and a half a day for 25 years. He does little activity. REVIEW OF SYSTEMS: He complains of right knee pain. All other pertinent review of systems is negative. PHYSICAL EXAMINATION: GENERAL: He is awake, alert and oriented x3. He is in no apparent distress. He is very pleasant. HEENT: Pupils are equal, round and reactive to light. Extraocular motion intact. Oral mucosa is pink and moist. HEART: Regular rate per radial pulse. LUNGS: Kendra symmetrically bilaterally with no audible breath sounds. ABDOMEN: Soft, nontender, nondistended. MUSCULOSKELETAL: On physical examination of the right knee, there is no effusion on exam. He has range of motion from 0-90 degrees; he has a lot of pain past 90 degrees. He has a lot of pain in both the medial and lateral joint lines. He has a positive medial Andrea test. IMAGING DATA: MRI of the knee does show a complex medial meniscal tear involving the posterior horn and a questionable small tear of the lateral meniscus. IMPRESSION: Complex medial meniscus tear of the right knee. PLAN: Will proceed with a right knee arthroscopy to include partial meniscectomy. Postoperatively, he will be placed in a compressive dressing and given oral pain medications and discharged to home. RON
[~2017-03-15] VITALS: Ht 200.7 cm; Wt 98.6 kg
[~2017-03-15] MED LIST changes: +ATROPINE SULFATE 0.1 MG/ML 5ML SYR IV PRN; -BSP15 PO; +BUPIVACAINE 0.5 % 5 MG/1 ML PF 10ML VIAL ONE; +CLINDAMYCIN 600 MG/54 ML D5W IV SCH; +CLINDAMYCIN PHOS 150 MG/ML 2 ML VIAL IV SCH; +DEXAMETHASONE SOD INJ 4 MG/ML VIAL ONE; -DSY50 PO; +EpHEDrine SULFATE INJ 50 MG/ML AMP IV PRN; +EpHEDrine SULFATE INJ 50 MG/ML AMP ONE; +FENTANYL CITRATE INJ 50 MCG/1 ML 2 ML VIAL ONE; +HYDROCODONE/ACETAMOPHEN 5/325MG TAB PO PRN; +KETOROLAC TROMETHAMINE 30 MG/ML VIAL ONE; +LACTATED RINGER'S 1000ML 1,000 ML IV SCH; +LACTATED RINGER'S 1000ML IV SCH; +LIDOCAINE HCL 2% 2 ML VIAL (20MG/ML) ONE; +MIDAZOLAM HCL 1 MG/ML 2ML VIAL ONE; +MoRPHine SULFATE 4 MG/ML 1 ML CARP\\VIAL ONE; +ONDANSETRON INJ 2 MG/ML 2 ML VIAL IV PRN; +ONDANSETRON INJ 2 MG/ML 2 ML VIAL ONE; +PROPOFOL IV EMULSION 10 MG/ML 20 ML VIAL IV ONE; +ROPIVACAINE 0.5% 5 MG/ML 30 ML VIAL XX ONE; +SODIUM CHLORIDE 0.9% 1000ML 1,000 ML IV SCH; -ZLF50 PO
[2017-03-15 05:36] VITALS: BP 167/84; PULSE 58; TEMP 36.6; O2SAT 97; Ht 200.7 cm; Wt 98.6 kg
--- NOTE | 2017-03-15 06:51 | History & Physical Bridge Note ---
H&P Re-Evaluation Bridge Note: I have examined the patient, reviewed the History & Physical and in the interval since the performance of the History & Physical I have noted the following changes of clinical significance: No changes noted
--- NOTE | 2017-03-15 07:43 | [facility] Post Operative Brief Note ---
Immediate Operative Summary Operative Date Mar 15, 2017. Pre-Operative Diagnosis Complex Medial Meniscus Tear of the Right Knee Post-Operative Diagnosis Complex Medial Meniscus Tear of the Right Knee Procedure(s) Performed Right Knee: Arthroscopy, Partial Medial Menisectomy, Chondroplasty Surgeon Dr. Calix Athletic Shoe Designer Surgeon(s) ALISON Hi Estimated Blood Loss 5 ml Findings as above Specimens none per surgeon Complication(s) None Disposition Recovery Room / PACU
--- NOTE | 2017-03-15 07:51 | Discharge Instructions ---
Discharge Instructions Date of Service Mar 15, 2017. Admission Reason for Admission: Right Knee Medial Meniscus Tear, Knee Pain Discharge Discharge Diagnosis / Problem: SAME ABOVE Discharge Goals Goal(s): Decrease discomfort, Improve function Activity Recommendations Activity Limitations: as noted below Lifting Limitations: gradually increase as tolerated Exercise/Sports Limitations: gradually increase as tolerated Shower/Bathe: tomorrow . Instructions / Follow-Up Instructions / Follow-Up MEDICATIONS: * Resume previous medications unless instructed otherwise by your surgeon. * Always take pain medication on a full stomach or with food to avoid upset stomach. * Do not drink alcohol or drive while taking narcotics. * Ibuprofen or Tylenol may be taken if narcotic not needed. SPECIAL CARE INSTRUCTIONS: __ None _X_ Keep extremity elevated and iced x 48 hours; apply ice 20-30 minutes 8-10 times/day. May remove at night. _X_ Crutches _X_ May discard when able __ Brace/Post-op shoe __ 24 hrs/day __ Remove at night _X_ Dressing __ Maintain until seen in office, may shower with plastic over site _X_ Remove dressings in 24-48 hours and then may shower _X_ Cover incisions with band-aids after showering __ Do not remove steri-strips Call physician if chills or temperature rises above 102 degrees or pain unrelieved by prescribed pain medications. Office [phone] Current Hospital Diet Patient's current hospital diet: Discharge Diet Recommended Diet: Regular Diet Fluid Restriction: None Procedures Procedures Performed: Right Knee: Arthroscopy, Partial Medial Menisectomy, Chondroplasty Pending Studies Studies pending at discharge: no Laboratory Results Hemoglobin A1c Test 02/18/17 09:40 Range/Units Estimated Average Glucose 117 mg/dl Hemoglobin A1c 5.7 H 4.5-5.6 % Lipid Panel Test 12/15/16 06:01 Range/Units Triglycerides Level 116 0-150 mg/dl Cholesterol Level 162 0-200 mg/dl HDL Cholesterol 36 mg/dl Cholesterol/HDL Ratio 4.5 LDL Cholesterol, Calculated 103 mg/dl Work Instructions Return To Work: after follow-up Medical Emergencies . Who to Call and When: Medical Emergencies: If at any time you feel your situation is an emergency, please call 911 immediately. . Non-Emergent Contact Non-Emergency issues call your: Primary Care Provider Call Non-Emergent contact if: you have a fever, temperature is above 101.5 . "Provider Documentation" section prepared by Bo Romano. . VTE Core Measure Inpt VTE Proph given/why not?: Treatment not indicated
[2017-03-15] MEDS: FENTANYL CITRATE INJ 50 MCG/1 ML 2 ML VIAL IV PRN ×3 (08:10→08:23)
--- NOTE | 2017-03-15 08:30 | OPERATIVE REPORT ---
DATE OF OPERATION: 03/15/2017 PREOPERATIVE DIAGNOSIS: Medial meniscal tear of the right knee with chondromalacia of the medial femoral condyle. POSTOPERATIVE DIAGNOSIS: Same. PROCEDURE: Right knee diagnostic arthroscopy with chondroplasty and partial medial meniscectomy. SURGEON: Garrett Calix DO STUFFER: Bo Romano PA-C, whose assistance was necessary for positioning the leg and helping with instrumentation. ANESTHESIA: General. COMPLICATIONS: None. CONDITION: Stable to PACU. INDICATIONS: Clement is a pleasant 61-year-old male who presented to my office with a several year history of right knee pain. MRI and clinical examination were diagnostic for medial meniscal tear of the right knee. After failing conservative treatment, he elected to undergo a right knee arthroscopy. OPERATION AND FINDINGS: On 03/15/2017, he arrived at [facility] for the above procedure. He was seen in the preoperative holding area and the operative extremity was identified and signed. He was given a preoperative antibiotic and taken back to the operating room, laid on the table in supine position, and put under general anesthesia. The right knee was then prepped and draped in sterile fashion. Time-out was done and the patient and operative extremity was properly identified. A scope was introduced in the lateral parapatellar portal. Diagnostic arthroscopy showed no cartilage damage in the patellofemoral joint. There were no loose bodies. The scope was brought into the medial compartment. There were some grade 1 and grade 2 chondral changes of the lateral aspect of the distal medial femoral condyle. There was some fraying of the cartilage. There was also a small horizontal tear in the posterior aspect of the medial meniscus. A medial parapatellar portal was made under direct visualization. A shaver was used to do a chondroplasty to remove any loose cartilage fragments from the distal medial femoral condyle. A biter was then used to remove the unstable portions of the meniscus and take the meniscus back to stable margins. A shaver was used to remove any excess debris and multiple pictures were taken. A probe was used to probe the meniscus and the root was intact. The scope was brought into the trochlea. ACL and PCL were intact. The scope was then brought into the lateral compartment. There was no meniscus or cartilage damage in the lateral compartment. The scope was then placed in the medial parapatellar portal. Repeat diagnostic arthroscopy showed no additional pathology. The scope was brought in the posterior aspect of the knee and there were no loose bodies found posteriorly. The joint was then irrigated and arthroscopic instruments were removed. Portal sites were closed with 3-0 nylon. The knee was then injected with 30 mL of ropivacaine with Toradol. He was then placed in a soft compressive dressing, extubated, [facility] and taken to the postanesthesia care unit in stable condition. He tolerated the procedure well. I attest to the content of the Intraoperative Record and any orders documented therein. Any exception s are noted below.
--- NOTE | 2017-03-15 08:49 | Anesthesiology Progress Note ---
Anesthesia Post Op Note Date & Time Mar 15, 2017 at 08:49 Vital Signs Pain Intensity: 3 Vital Signs Past 12 Hours Date Time Temp Pulse Resp B/P (MAP) Pulse Ox O2 Delivery O2 Flow Rate FiO2 03/15/17 08:31 119/69 03/15/17 08:29 56 17 94 03/15/17 08:29 58 17 03/15/17 08:26 36.4 57 16 120/69 97 Room Air 03/15/17 08:26 120/69 03/15/17 08:24 51 19 03/15/17 08:24 51 19 100 03/15/17 08:23 50 20 98 03/15/17 08:23 51 20 03/15/17 08:21 114/65 03/15/17 08:18 49 8 03/15/17 08:18 49 8 98 03/15/17 08:16 112/63 03/15/17 08:13 48 8 03/15/17 08:13 48 8 98 03/15/17 08:12 47 13 99 03/15/17 08:12 47 13 03/15/17 08:11 117/65 03/15/17 08:07 50 10 03/15/17 08:07 49 10 98 03/15/17 08:06 120/64 03/15/17 08:02 50 15 03/15/17 08:02 50 15 98 03/15/17 08:01 116/61 03/15/17 07:57 52 17 110/59 97 03/15/17 07:57 53 17 03/15/17 07:50 56 17 100/55 96 Mask 10 03/15/17 07:42 36.2 53 14 92/48 95 Mask 10 03/15/17 05:36 36.6 58 18 167/84 (111) 97 Room Air Notes Mental Status: alert / awake / arousable, participated in evaluation Pt Amnestic to Procedure: Yes Nausea / Vomiting: adequately controlled Pain: adequately controlled Airway Patency, RR, SpO2: stable & adequate BP & HR: stable & adequate Hydration State: stable & adequate Anesthetic Complications: no major complications apparent
[2017-03-15 08:50] VITALS: BP 150/70; PULSE 55; TEMP 36.8; O2SAT 96
[2017-03-15 09:19] VITALS: BP 139/60; PULSE 64; O2SAT 95
[2017-03-15 09:50] VITALS: BP 140/65; PULSE 66; TEMP 36.6; O2SAT 96
[2017-03-15 10:20] VITALS: BP 141/65; PULSE 73; O2SAT 97
== END | disposition home or self-care (01) ==
LOC: C.ACU 04:56
PROVIDERS: ATTEND Orthopaedic Surgery
DX: M23.221 Derangement of posterior horn of medial meniscus due to old tear or injury, right knee (principal); I48.91 Unspecified atrial fibrillation; F32.9 Major depressive disorder, single episode, unspecified; I12.9 Hypertensive chronic kidney disease with stage 1 through stage 4 chronic kidney disease, or unspecified chronic kidney disease; N18.9 Chronic kidney disease, unspecified

== ENCOUNTER → 2017-04-02 | Outpatient (CLI) | payer OTHER ==
[~2017-04-02] MED LIST changes: -ATROPINE SULFATE 0.1 MG/ML 5ML SYR IV PRN; -BUPIVACAINE 0.5 % 5 MG/1 ML PF 10ML VIAL ONE; -CLINDAMYCIN 600 MG/54 ML D5W IV SCH; -CLINDAMYCIN PHOS 150 MG/ML 2 ML VIAL IV SCH; -DEXAMETHASONE SOD INJ 4 MG/ML VIAL ONE; -EpHEDrine SULFATE INJ 50 MG/ML AMP IV PRN; -EpHEDrine SULFATE INJ 50 MG/ML AMP ONE; -FENTANYL CITRATE INJ 50 MCG/1 ML 2 ML VIAL ONE; -HYDROCODONE/ACETAMOPHEN 5/325MG TAB PO PRN; -KETOROLAC TROMETHAMINE 30 MG/ML VIAL ONE; -LACTATED RINGER'S 1000ML 1,000 ML IV SCH; -LACTATED RINGER'S 1000ML IV SCH; -LIDOCAINE HCL 2% 2 ML VIAL (20MG/ML) ONE; -MIDAZOLAM HCL 1 MG/ML 2ML VIAL ONE; -MoRPHine SULFATE 4 MG/ML 1 ML CARP\\VIAL ONE; -ONDANSETRON INJ 2 MG/ML 2 ML VIAL IV PRN; -ONDANSETRON INJ 2 MG/ML 2 ML VIAL ONE; -PROPOFOL IV EMULSION 10 MG/ML 20 ML VIAL IV ONE; -ROPIVACAINE 0.5% 5 MG/ML 30 ML VIAL XX ONE; -SODIUM CHLORIDE 0.9% 1000ML 1,000 ML IV SCH
[2017-04-02 13:48] LABS: BLOOD UREA NITROGEN 12 mg/dl (7-18); BUN/CREATININE RATIO 8.1 (10-20); CARBON DIOXIDE 25 mmol/L (21-32); CHLORIDE 109 mmol/L (98-107); GLUCOSE 100 mg/dl (70-99); POTASSIUM 3.9 mmol/L (3.5-5.1); SODIUM 140 mmol/L (136-145)
== END | disposition home or self-care (01) ==
LOC: C.LABPVFM 08:21
PROVIDERS: ATTEND Nurse Practitioner
DX: I10 Essential (primary) hypertension (principal)

== ENCOUNTER → 2017-07-11 | Outpatient (CLI) | payer OTHER ==
[2017-07-11 12:59] LABS: BLOOD UREA NITROGEN 14 mg/dl (7-18); BUN/CREATININE RATIO 10.8 (10-20); CALCIUM 8.9 mg/dl (8.5-10.1); CARBON DIOXIDE 25 mmol/L (21-32); CHLORIDE 107 mmol/L (98-107); CHOLESTEROL 212 mg/dl (0-200); CREATININE 1.33 mg/dl (0.60-1.40); EstGFR CKD-E AfrAm 66.4; EstGFR CKD-E NON AfrAm 57.3; SODIUM 139 mmol/L (136-145)
[2017-07-11 12:59] LABS: GLUCOSE 124 mg/dl (70-99)
[2017-07-11 13:02] LABS: CHOLESTEROL/HDL RATIO 5.3; HDL CHOLESTEROL 40 mg/dl; LDL CHOLESTEROL CALCULATED 110 mg/dl; TRIGLYCERIDES 310 mg/dl (0-150); VERY LOW DENSITY LIPOPROT CALC 62 mg/dl
[2017-07-11 13:10] LABS: HEMOGLOBIN A1C 5.6 % (4.5-5.6)
[2017-07-11 13:10] LABS: ESTIMATED AVERAGE GLUCOSE 114 mg/dl; HA1C FLAG Normal (Normal)
== END | disposition home or self-care (01) ==
LOC: C.LABPVFM 10:32
DX: R53.1 Weakness (principal); I10 Essential (primary) hypertension; R73.01 Impaired fasting glucose

== ENCOUNTER → 2017-10-10 | Day surgery (SDC) | payer OTHER ==
[2017-09-20 11:40] VITALS: Ht 199.4 cm; Wt 104.5 kg
--- NOTE | 2017-10-01 10:18 | PAT Medication Instructions ---
Service Date Oct 01, 2017. Current Home Medication List Buspirone Hcl (Buspirone Hcl), 20 MG PO BID Diclofenac (Voltaren), 75 MG PO BID Dutasteride (Avodart), 0.5 MG PO HS Dutasteride (Avodart), 0.5 MG PO HS Fluticasone Propionate (Nasal) (Allergy Nasal [place] 24 Ho), 1 [place]AY [place] BID Gabapentin (Neurontin), 2 CAP PO BID Methocarbamol (Robaxin), 1 TAB PO BID Omeprazole (Prilosec), 20 MG PO QAM Sertraline Hcl (Zoloft), 200 MG PO QAM Tamsulosin Hcl (Flomax), 2 CAP PO QAM Trazodone Hcl (Desyrel), 150 MG PO HS Medication Instructions For Your Scheduled Surgery Contact your surgeon for instructions for: Diclofenac (Voltaren), 75 MG PO BID - Hold the following medications the morning of surgery: Methocarbamol (Robaxin), 1 TAB PO BID - Take the following medications the morning of surgery with a sip of water: Buspirone Hcl (Buspirone Hcl), 20 MG PO BID Fluticasone Propionate (Nasal) (Allergy Nasal [place] 24 Ho), 1 [place] BID Gabapentin (Neurontin), 2 CAP PO BID Omeprazole (Prilosec), 20 MG PO QAM Sertraline Hcl (Zoloft), 200 MG PO QAM Tamsulosin Hcl (Flomax), 2 CAP PO QAM - Take the following medications as scheduled the night before surgery: Buspirone Hcl (Buspirone Hcl), 20 MG PO BID Dutasteride (Avodart), 0.5 MG PO HS Fluticasone Propionate (Nasal) (Allergy Nasal [place] 24 Ho), 1 SPR[place] BID Gabapentin (Neurontin), 2 CAP PO BID Methocarbamol (Robaxin), 1 TAB PO BID Trazodone Hcl (Desyrel), 150 MG PO HS If you have any questions please call us at [phone] or [phone] or [phone]
[2017-10-01 11:03] LABS: BASO % 1.5 %; EOS % 2.4 %; EOS ABS # 0.16 K/uL (0-0.5); HEMOGLOBIN 14.6 g/dL (14.0-18.0); IG# 0.02 K/uL (0.00-0.02); LYMPH % 17.5 %; LYMPH ABS # 1.18 K/uL (1.2-3.4); MEAN CELL VOLUME 84.7 fL (80-100); MEAN CORPUSCULAR HEMOGLOBIN 30.2 pg (25-34); MEAN CORPUSCULAR HGB CONC 35.6 g/dl (32-36); MONO % 9.1 %; MONO ABS # 0.61 K/uL (0.11-0.59); NEUT % 69.2 %; NEUT ABS # 4.67 K/uL (1.4-6.5); PLATELET COUNT 263 K/uL (130-400); RED CELL DISTRIBUTION WIDTH CV 14.4 % (11.5-14.5); RED CELL DISTRIBUTION WIDTH SD 44.9 fL (36.4-46.3); WHITE BLOOD COUNT 6.74 K/uL (4.8-10.8)
[2017-10-01 11:12] LABS: CALCIUM 8.7 mg/dl (8.5-10.1); CREATININE 1.5 mg/dl (0.60-1.40)
[~2017-10-10] VITALS: Ht 199.4 cm; Wt 104.5 kg
[~2017-10-10] MED LIST changes: -ACET-1256 PO; +ATROPINE SULFATE 0.1 MG/ML 5ML SYR IV PRN; +BUPIVACAINE 0.25% 30 ML VIAL ONE; +CEFAZOLIN 2000MG IV PUSH 15 ML IV SCH; +DICL-201 PO; +DUTA0.5C PO; +EpHEDrine SULFATE INJ 50 MG/ML AMP IV PRN; +EpHEDrine SULFATE INJ 50 MG/ML AMP ONE; +FENTANYL CITRATE INJ 50 MCG/1 ML 2 ML VIAL ONE; +FLUT50SP45 NAE; +GABA-113 PO; -HYDR-5688 PO; +LACTATED RINGER'S 1000ML 1,000 ML IV SCH; +LIDOCAINE HCL 2% 2 ML VIAL (20MG/ML) ONE; -LPR25 PO; +MIDAZOLAM HCL 1 MG/ML 2ML VIAL ONE; +ONDANSETRON INJ 2 MG/ML 2 ML VIAL IV PRN; +OXYC-57 PO; +OXYCODONE/ACETAMINOPHEN 5-325 TAB PO PRN; +PHENYLEPHRINE 100MCG/ML 5ML SYR IV PRN; +PRLSR20 PO; +PROPOFOL IV EMULSION 10 MG/ML 20 ML VIAL IV ONE; +SODIUM CHLORIDE 0.9% 1000ML 1,000 ML IV SCH; +SODIUM CHLORIDE 0.9% INJ 10 ML VIAL ONE
--- NOTE | 2017-10-10 16:20 | [facility] Post Operative Brief Note ---
Immediate Operative Summary Operative Date Oct 10, 2017. Pre-Operative Diagnosis Osteoarthritis of left wrist Post-Operative Diagnosis Same Procedure(s) Performed Left Proximal Row Carpectomy Surgeon Dr. Tamiko Calix Sponge Buffer Surgeon(s) Justino Romano PA-C Estimated Blood Loss 5 cc Findings Consistent with Post-Op Diagnosis Specimens None Drains None Anesthesia Type General Complication(s) none Disposition Disposition: Recovery Room / PACU
--- NOTE | 2017-10-10 16:32 | Discharge Instructions-SurgCtr ---
Discharge Instructions Date of Service Oct 10, 2017. Visit Reason for Visit: Osteoarthritis Of Wrist Discharge Discharge Diagnosis / Problem: SAME ABOVE Discharge Goals Goal(s): Decrease discomfort, Improve function Medications Stopped Medications Name(s): Myron Restart Stopped Medication(s): MAY RESTART 10/11/2017 Activity Recommendations Activity Limitations: as noted below Lifting Limitations: until after follow-up appointment Exercise/Sports Limitations: until after follow-up appointment Anesthesia . Post Anesthesia Instructions: If you have had General Anesthesia or IV Sedation: * Do not drive today. * Resume driving when surgeon permits. * Do not make important decisions or sign legal documents today. * Call surgeon for: 1. Temperature elevations greater than 101 degrees F. 2. Uncontrollable pain. 3. Excessive bleeding. 4. Persistent nausea and vomiting. 5. Medication intolerance (nausea, vomiting or rash). * For nausea and vomiting use only clear liquids such as: tea, soda, bouillon until nausea subsides, then gradually increase diet as tolerated. * If you have any concerns or questions, call your surgeon's office. If physician is unavailable and it is an emergency, call 911 or go to the nearest emergency room. . Instructions / Follow-Up Instructions / Follow-Up MEDICATIONS: * Resume previous medications unless instructed otherwise by your surgeon. * Always take pain medication on a full stomach or with food to avoid upset stomach. * Do not drink alcohol or drive while taking narcotics. * Ibuprofen or Tylenol may be taken if narcotic not needed. SPECIAL CARE INSTRUCTIONS: __ None _X_ Keep extremity elevated and iced x 48 hours; apply ice 20-30 minutes 8-10 times/day. May remove at night. __ Sling __24 hrs/day __ Remove at night __ Shoulder Immobilizer __ 24 hrs/day __ Remove at night _X_ Dressing _X_ Maintain until seen in office, may shower with plastic over site __ Remove dressings in 24-48 hours and then may shower __ Cover incisions with band-aids after showering __ Do not remove steri-strips Call physician if chills or temperature rises above 102 degrees or pain unrelieved by prescribed pain medications at . . Diet Recommendations Home Diet: no limitations Fluid Restriction: None Procedures Procedures Performed: Left Proximal Row Carpectomy Pending Studies Studies pending at discharge: no Work Instructions Return To Work: after follow-up Medical Emergencies . Who to Call and When: Medical Emergencies: If at any time you feel your situation is an emergency, please call 911 immediately. . Non-Emergent Contact Non-Emergency issues call your: Primary Care Provider Call Non-Emergent contact if: you have a fever, temperature is above 101.5 . . "Provider Documentation" section prepared by Bo Romano. .
[2017-10-10] MEDS: HYDROmorphone INJ 2 MG/ML SYR/VIAL IV PRN ×4 (16:56→17:11)
--- NOTE | 2017-10-10 17:02 | OPERATIVE REPORT ---
DATE OF OPERATION: 10/10/2017 PREOPERATIVE DIAGNOSIS: Radiocarpal arthritis of the left wrist. POSTOPERATIVE DIAGNOSIS: Same. PROCEDURE: Left proximal row carpectomy. SURGEON: Dr. Garrett Calix. PAPERHANGER ASSISTANT: Bo Romano PA-C, whose assistance was necessary for retraction and closure. ANESTHESIA: General. COMPLICATIONS: None. CONDITION: Stable to PACU. INDICATIONS: Clement is a pleasant 61-year-old male who presented to my office with chronic left wrist pain. 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 The capitellum looked okay. The lunate fossa looked okay. After failing conservative treatment, he elected to undergo a proximal row carpectomy. OPERATION AND FINDINGS: On 10/10/2017, he arrived at [facility] for the above procedure. He was seen in the preoperative holding and the operative extremity was identified and signed. He was given a preoperative antibiotic, taken back to the operating room, laid on the table in supine position and put under general anesthesia. The left wrist was then prepped and draped in sterile fashion. Time-out was done. The patient's operative extremity was properly identified. A longitudinal incision was made dorsally over the fourth dorsal compartment. Dissection was taken down through the fascia and the fourth dorsal compartment was easily visualized. An incision was made in the compartment closer to the radial side. The tendons were then protected with a Priscilla drain. The PIN nerve was identified and lysed. The dorsal capsule was then opened with a T-shaped incision. The carpal bones were identified. The lunate was removed first in piecemeal fashion. The triquetrum was removed as a single piece and the scaphoid was then removed in piecemeal fashion. Fluoroscopy was then used to ensure complete resection of all bone fragments. The capitate fit nicely into the lunate fossa. The wound was then irrigated. The dorsal ligaments were then closed with transosseous 3-0 Vicryl sutures to tie it back to the distal radius. The extensor retinaculum was then closed with 3-0 Vicryl and the skin was closed with 4-0 nylon suture in a mattress fashion. He was then placed in a volar splint, extubated, transferred to a [facility] and taken to the postanesthesia care unit in stable condition. He tolerated the procedure well. I attest to the content of the Intraoperative Record and any orders documented therein. Any exceptions are noted below. EMERSOND
--- NOTE | 2017-10-10 17:36 | Anesthesia Progress Nt - [facility] ---
Anesthesia Post Op Note Date & Time Oct 10, 2017 at 17:36 Vital Signs Pain Intensity: 6 Vital Signs Past 12 Hours Date Time Temp Pulse Resp B/P (MAP) Pulse Ox O2 Delivery O2 Flow Rate FiO2 10/10/17 17:18 36.4 10/10/17 17:00 Room Air 10/10/17 16:31 36.0 84 16 130/70 96 Diffusion Mask 5 10/10/17 12:45 36.8 71 20 152/84 (106) 97 Room Air Notes Mental Status: alert / awake / arousable, participated in evaluation Pt Amnestic to Procedure: Yes Nausea / Vomiting: adequately controlled Pain: adequately controlled Airway Patency, RR, SpO2: stable & adequate BP & HR: stable & adequate Hydration State: stable & adequate Anesthetic Complications: no major complications apparent
--- NOTE | 2017-10-10 17:44 | DIAGNOSTIC IMAGING REPORT ---
SURGICNTR WRIST 2 VIEWS HISTORY: 61 years-old Male LEFT PROXIMAL ROW CARPECTOMY status post carpectomy COMPARISON: Left wrist radiographs 12/13/2016 TECHNIQUE: Single spot fluoroscopic view of the left wrist was obtained utilizing 40 seconds fluoroscopy time FINDINGS: Single image demonstrates postoperative changes from interval proximal carpal row resection. Suspected bone fragments are seen within the operative bed. There are degenerative changes of the distal radial ulnar joint with marginal spurring and subcortical cystic changes. Moderate degenerative changes of the first carpal metacarpal joint. IMPRESSION: Fluoroscopic assistance as above. Please see operative report for further details. The above report was generated using voice recognition software. It may contain grammatical, syntax or spelling errors. Electronically signed by: Jace Ch M.D. 10/10/2017 5:43 PM Dictated Date/Time: 10/10/2017 5:41 PM
[2017-10-10 18:06] VITALS: BP 115/71; PULSE 73; O2SAT 97
== END | disposition home or self-care (01) ==
LOC: X.SURG 12:08
PROVIDERS: ATTEND Orthopaedic Surgery
DX: M19.032 Primary osteoarthritis, left wrist (principal); F32.9 Major depressive disorder, single episode, unspecified; E78.5 Hyperlipidemia, unspecified; I10 Essential (primary) hypertension; Z90.5 Acquired absence of kidney; K21.9 Gastro-esophageal reflux disease without esophagitis; M19.90 Unspecified osteoarthritis, unspecified site; F41.9 Anxiety disorder, unspecified; Z86.79 Personal history of other diseases of the circulatory system; Z88.1 Allergy status to other antibiotic agents; Z98.41 Cataract extraction status, right eye; Z98.42 Cataract extraction status, left eye; Z87.891 Personal history of nicotine dependence